=== PATIENT | female | born 1935 | race Caucasian/White ===

== ENCOUNTER 2019-09-20 07:20 | Inpatient (IN) ==
--- NOTE | 2019-08-09 16:29 | PAT Medication Instructions ---
Medication Instructions Date of Service August 09, 2019 Home Medications albuterol sulfate 2 inh INHALATION Q6H PRN ibuprofen [Advil] 200 mg PO Q6H PRN multivitamin 1 tab PO DAILY sertraline 50 mg PO DAILY tafluprost (PF) [Zioptan (PF)] 1 drp OPHTHALMIC (EYE) DAILY ASK your surgeon for instructions ibuprofen [Advil] 200 mg PO Q6H PRN DO NOT take the morning of surgery multivitamin 1 tab PO DAILY Take morning of surgery With a small sip of water, OTHERWISE NOTHING TO EAT OR DRINK AFTER MIDNIGHT: albuterol sulfate 2 inh INHALATION Q6H PRN (if needed, and bring with you to the hospital) sertraline 50 mg PO DAILY tafluprost (PF) [Zioptan (PF)] 1 drp OPHTHALMIC (EYE) DAILY Other Notes If you have any questions please call us at [phone] or [phone] or [phone] or [phone]
--- NOTE | 2019-08-12 12:44 | Anesthesiology Consultation ---
Date of Service August 12, 2019 Assessment & Plan (1) Encounter for pre-operative examination: Note to cardio re: need for echo due to abnormal EKG or vascular f/u prior to surgery. Chart Review Chart Review: Acceptable Risk for Surgery (pending echo/response from PCP) and Patient seen in Pre Admission Testing Teaching & Discussion Instructed NPO after midnight before surgery, except medications with 15 cc of water. Medication instructions provided according to the PAT guidelines. History Surgery Operation Date: 09/20/19 07:00 Proposed Procedures p Left Anterior Total Hip Arthroplasty - Nico Maldoando, Height/Weight Height: 5 ft 6 in Weight: 72.9 kg Allergies Allergy/AdvReac Type Severity Reaction Status Date / Time nickel Allergy Unknown JEWELRY - Verified 08/12/19 10:33 MAKES EARS ITCH MEFOXITIN Allergy Unknown RASH Uncoded 08/12/19 10:33 Medications Home Medications Medication Instructions Recorded Confirmed Last Taken albuterol sulfate 2 inh INHALATION Q6H PRN 08/05/19 08/12/19 Unknown ibuprofen [Advil] 200 mg PO Q6H PRN 08/05/19 08/12/19 Unknown multivitamin 1 tab PO DAILY 08/05/19 08/12/19 Unknown sertraline 50 mg PO DAILY 08/05/19 08/12/19 Unknown tafluprost (PF) [Zioptan (PF)] 1 drp OPHTHALMIC (EYE) DAILY 08/05/19 08/12/19 Unknown Past Medical History Medical History Anxiety Asthma PREVIOUSLY USING ALBUTEROL QID, MORE RECENTLY HAS ONLY NEEDED ONCE DAILY Depression Glaucoma Hiatal hernia History of renal stone Osteoarthritis Splenic artery aneurysm PCP MONITORING, PATIENT TO SEE VASCULAR Stress incontinence Exercise / Class Metabolic Activity III < 4 Walking/Shop/Light housework (Denies CP with 1 FOS, may have some mild SOB 2/2 asthma) Past Family History Family History Aunt Family history of diabetes mellitus Aunt Family history of diabetes mellitus Past Surgical History Surgical History Hx of cholecystectomy Hx of colonoscopy Hx of dilation and curettage Hx of lithotripsy Past Anesthesia History No Hx of Anesthesia Complications and No Family Hx of Anesthesia Complications History of PONV No Hx of PONV and No Hx of Motion Sickness Social History Smoking Status: Former smoker Do You Dip or Chew Tobacco: No Smoking End Date: 30-40 YR AGO Hx Alcohol Use: Yes alcohol intake frequency: holidays/special occasions only Hx Substance Use: No Review of Systems Pt denies any recent chest pain, shortness of breath, palpitations, cough, fever or URI. Physical Exam Vital Signs BP: 160/86 P: 80bpm SPO2: 98% RA T: 98.0 F R: 12 ENMT Mouth: + dental restorations (several crowns) and + small oral opening; no chipped teeth and no loose teeth Thyromental Distance: > or= 3.5 Finger Breadths (4) Mallampati Class: III Neck normal visual inspection and + limited neck extension Respiratory normal respiratory effort Auscultation: lungs clear to auscultation bilaterally Cardiovascular Rate/Rhythm: regular rate and regular rhythm Heart Sounds: no murmur Extremities: no edema Testing Laboratory Results 08/12/19 12:58 08/12/19 12:58 PT 10.1 Seconds (9.0-12.0) 08/12/19 12:58 INR 1.0 (0.9-1.1) 08/12/19 12:58 APTT 25.0 Seconds (21.0-31.0) 08/12/19 12:58 Blood Type B Positive 08/12/19 12:58 Antibody Screen NEGATIVE 08/12/19 12:58 Electrocardiogram Date: 08/12/19 Findings: + NSR @ (65) Left anterior fascicular block. Minimal voltage criteria for LVH, may be normal variant. Cannot rule out anterior infarct, age undetermined. Compared with EKG of 03/02/2013, questionable change in QRS duration and minimal criteria for anterior infarct are now present. Chest X-Ray Date: 08/12/19 IMPRESSION: 1. Large hiatal hernia. No active disease in the chest.
--- NOTE | 2019-08-12 13:35 | XRay Report ---
XR chest Pre-admission PA/Lat CLINICAL HISTORY: Preoperative chest COMPARISON STUDY: 03/02/2013 FINDINGS: There is a large hiatal hernia. The heart is normal in size. There is no failure. There is no focal pulmonary consolidation. There are no pleural effusions. There is an eggshell calcification within left upper quadrant, likely secondary to a splenic artery aneurysm. This is visualized in the prior study.[ IMPRESSION: 1. Large hiatal hernia. No active disease in the chest. ACT 112: Negative or not required by law. Electronically signed by: Stuart Mcbride M.D. 08/12/2019 1:34 PM
[2019-08-12 14:00] LABS: Basophils # (auto) 0.02 K/uL (0-0.2); Basophils % (auto) 0.2 %; Hematocrit (blood only) 46.9 % (37-47); Hemoglobin 15.3 g/dL (12.0-16.0); Immature Granulocytes # (auto) 0.04 K/uL (0.00-0.02); Immature Granulocytes % (auto) 0.4 %; Lymphocytes % (auto) 12.5 %; Mean Corpuscular Hemoglobin 27.8 pg (25-34); Mean Corpuscular Hgb Conc 32.6 g/dL (32-36); Mean Corpuscular Volume 85.3 fL (80-100); Mean Platelet Volume 11.4 fL (7.4-10.4); Monocytes # (auto) 0.62 K/uL (0.11-0.59); Monocytes % (auto) 6.5 %; Neutrophils # (auto) 7.63 K/uL (1.4-6.5); Neutrophils % (auto) 79.4 %; Platelet Count 169 K/uL (130-400); RDW Coefficient of Variation 14.1 % (11.5-14.5); RDW Standard Deviation 43.8 fL (36.4-46.3); White Blood Count 9.61 K/uL (4.8-10.8)
[2019-08-12 14:19] LABS: Partial Thromboplastin Ratio 0.9; Prothrombin Time 10.1 Seconds (9.0-12.0)
[2019-08-12 14:23] LABS: BUN Creatinine Ratio 20.8 (10-20); Calcium 9.6 mg/dl (8.5-10.1); Creatinine Clr Calc Pharmacy 44.5 ml/min; Est GFR (African American) 61.8; Est GFR (Non-African American) 53.3; Potassium 4.8 mmol/L (3.5-5.1)
--- NOTE | 2019-08-12 15:40 | Electrocardiogram Report ---
Test Reason : Blood Pressure : / mmHG Vent. Rate : 065 BPM Atrial Rate : 065 BPM P-R Int : 182 ms QRS Dur : 114 ms QT Int : 402 ms P-R-T Axes : 066 -61 061 degrees QTc Int : 418 ms Normal sinus rhythm Left anterior fascicular block Minimal voltage criteria for LVH, may be normal variant Cannot rule out Anterior infarct , age undetermined Abnormal ECG When compared with ECG of 02-MAR-2013 11:23, Questionable change in QRS duration Minimal criteria for Anterior infarct are now Present Confirmed by Javier Cunningham ([id number]) on 08/12/2019 3:40:08 PM Referred By: Nico Maldonado Confirmed By:Javier Cunningham
--- NOTE | 2019-09-19 15:51 | History & Physical Report ---
Date of Service September 19, 2019 Assessment & Plan (1) Osteoarthritis of left hip: We will proceed with a left anterior total of arthroplasty. Postoperatively she will be placed on aspirin for DVT prophylaxis. She will be kept overnight in the hospital for postoperative medical management. She plans to use home health upon discharge. Present on Admission?: Yes History of Present Illness Chief Complaint: Primary osteoarthritis of the left hip Primary Care Provider: Nancy Sandoval DO Alexandra is a pleasant 84-year-old female who is been dealing with chronic increasing left hip and groin pain. X-rays and clinical examination have been diagnostic for primary osteoarthritis of the left hip. After failing conservative treatment, she has elected to proceed with a left anterior total hip arthroplasty. Allergies Allergy/AdvReac Type Severity Reaction Status Date / Time nickel Allergy Unknown JEWELRY - Verified 08/12/19 10:33 MAKES EARS ITCH MEFOXITIN Allergy Unknown RASH Uncoded 08/12/19 10:33 Home Medications Home Medications Medication Instructions Recorded Confirmed Type albuterol sulfate 2 inh INHALATION Q6H PRN 08/05/19 08/12/19 History ibuprofen [Advil] 200 mg PO Q6H PRN 08/05/19 08/12/19 History multivitamin 1 tab PO DAILY 08/05/19 08/12/19 History sertraline 50 mg PO DAILY 08/05/19 08/12/19 History tafluprost (PF) [Zioptan (PF)] 1 drp OPHTHALMIC (EYE) DAILY 08/05/19 08/12/19 History Past Med/Surg History Medical History Anxiety Asthma PREVIOUSLY USING ALBUTEROL QID, MORE RECENTLY HAS ONLY NEEDED ONCE DAILY Depression Glaucoma Hiatal hernia History of renal stone Osteoarthritis Splenic artery aneurysm PCP MONITORING, PATIENT TO SEE VASCULAR Stress incontinence Surgical History Hx of cholecystectomy Hx of colonoscopy Hx of dilation and curettage Hx of lithotripsy Family History Aunt Family history of diabetes mellitus Aunt Family history of diabetes mellitus Social History Preferred Language: Greek Communication Ability: Effective Beliefs That Will Affect Care: None Current Living Situation: Alone Feels Safe at Home: Yes Smoking Status: Former smoker Second Hand Exposure: No ; Hx Alcohol Use: Yes Hx Substance Use: No Review of Systems All systems reviewed & are unremarkable except as noted in HPI & below Physical Exam Constitutional: WD/WN, vitals as above Eyes: PERRL, conjunctivae normal, anicteric sclerae ENMT: external ear and nose normal, oropharynx normal Neck: trachea midline, no thyromegaly Respiratory: normal respiratory effort Cardiovascular: RRR, no murmur, no edema Gastrointestinal (Abdomen): normal bowel sounds, soft, nontender, no hepatosplenomegaly Musculoskeletal: Physical examination of the left hip reveals decreased range of motion with flexion, internal and external rotation. There is significant groin pain with forced internal rotation of the hip his leg lengths are essentially equal. Psychiatric: A+Ox3, euthymic affect Results & Data Diagnostic Findings Radiographs of the left hip and pelvis demonstrate advanced osteoarthritis with joint space narrowing osteophyte formation and [id number] articulation.
[~2019-09-20 07:20] MED LIST: ACETAMINOPHEN 500 MG TAB PO SCH; BUPIVACAINE 0.5 % 5 MG/1 ML PF 10ML VIAL ONE; CEFAZOLIN 1000MG 1,000 MG/7.5 ML SYR IV SCH; FAMOTIDINE 20 MG TAB PO SCH; GABAPENTIN 300 MG CAP PO SCH; LR 500ML BOLUS, THEN 15ML/HR IV SCH; LR 60ML/HR IV SCH; ROPIVACAINE 0.5% HCL/PF 150 MG, BUPIVACAINE 0.5% MPF 30 ML, EPINEPHrine 30MG/30ML (OR U... INSTIL SCH; TRANEXAMIC ACID 1,000 MG **IV Intra-op IV SCH; TRANEXAMIC ACID 1,000 MG **IV Pre-op IV SCH; dexAMETHasone 4 MG TAB PO SCH
[2019-09-20] MEDS ORDERED: PROPOFOL IV EMULSION 10 MG/ML 20 ML VIAL IV ONE (08:04)
[2019-09-20] MEDS ORDERED: LIDOCAINE HCL 2% 2 ML VIAL/AMP(20MG/ML) INFIL ONE (08:04)
[2019-09-20] MEDS ORDERED: DEXAMETHASONE SOD INJ 4 MG/ML VIAL ONE (08:05)
[2019-09-20] MEDS ORDERED: MIDAZOLAM HCL 1 MG/ML 2ML VIAL ONE (08:05)
[2019-09-20] MEDS ORDERED: ONDANSETRON INJ 2 MG/ML 2 ML VIAL ONE (08:05)
[2019-09-20] MEDS ORDERED: fentaNYL citrate 100 MCG/2 ML VIAL ONE (08:05)
--- NOTE | 2019-09-20 08:28 | History & Physical Bridge Note ---
Date of Service September 20, 2019 History & Physical Bridge Note I have examined the patient, reviewed the History & Physical and in the interval since the performance of the History & Physical I have noted the following changes of clinical significance: no changes noted
[2019-09-20] MEDS ORDERED: ONDANSETRON INJ 2 MG/ML 2 ML VIAL IV PRN ×2 (08:54→12:15)
[2019-09-20] MEDS ORDERED: ePHEDrine sulfate 50 MG/ML AMP IV PRN (08:54)
[2019-09-20] MEDS ORDERED: ATROPINE SULFATE 0.1 MG/ML 10ML SYR IV PRN (08:54)
[2019-09-20] MEDS ORDERED: fentaNYL citrate 100 MCG/2 ML VIAL IV PRN (08:54)
[2019-09-20] MEDS ORDERED: ORTHO JOINT ANESTHETIC ONE (09:02)
[2019-09-20] MEDS ORDERED: PHENYLEPHRINE 100MCG/ML 5ML SYR ONE (09:59)
[2019-09-20] MEDS ORDERED: ePHEDrine sulfate 50 MG/ML SYR ONE (10:03)
--- NOTE | 2019-09-20 10:58 | Operative Report ---
PG Post Operative Report Pre & Post Diagnosis Operation Date: 09/20/19 10:10 Pre-Op Diagnosis: Left Hip Degenerative Joint Disease Post-Op Diagnosis: Left Hip Degenerative Joint Disease I identified the patient and participated in the time-out.: Yes Procedure Operation Date: 09/20/19 10:10 Actual Procedures p Left Anterior Total Hip Arthroplasty, Uncemented(Left) - Nico Maldonado DO Surgeon Nico Maldonado, Skip Tender Nico Arellano PAC Estimated Blood Loss 250 Findings Consistent with Post-Op Diagnosis Specimens Left femoral head Complications none Disposition Disposition: Recovery Room Indications Alexandra is a pleasant 84-year-old female who presented my office with complaints of chronic increasing left hip and groin pain. X-rays and clinical examination were diagnostic for primary osteoarthritis of the left hip. After failing conservative treatment, she elected to proceed with a left anterior total hip arthroplasty. Description of Procedure Implants used I used a Biomet Taperloc total hip arthroplasty system with a size 8 high offset Taperloc stem, a 48 mm G7 cup with two 25mm screws, an E1 polyethylene liner, a 32 mm ceramic head with a +0 neck. Alexandra arrived at the hospital for the above procedure. She was seen in the preoperative holding area and the operative extremity was identified and signed. She was given a spinal anesthetic, a preoperative antibiotic, and TXA. She was then taken back to the operating room and laid on the table in the supine position. She was given basic sedation. The operative leg was secured to a Puristst leg positioner. The hip was then prepped and draped in sterile fashion. A timeout was done and the patient and the operative extremity was properly identified. An anterior approach was used. Dissection was taken down through the fascia and the tensor muscle belly was retracted laterally and the rectus was retracted medially. The circumflex vessels were identified and ligated. The capsule was then incised and tagged for later repair. The femoral neck was then cut and the femoral head was removed. The acetabulum was exposed. Time was spent doing a complete circumferential labral release. Sequential reaming of the acetabulum up to a size 47 reamer was done. Final reamings were done under fluoroscopy to ensure appropriate version. A Biomet 48 mm G7 cup was then impacted into place. Two 25 mm screws was placed because of her weak bone quality. The E1 polyethylene liner was then snapped into place. Surrounding soft tissues were then injected with 100 cc of an orthopedic pain control cocktail. The proximal femur was then exposed. Sequential broaching up to a size 8 broach was done. Off that broach a size 32 head with a +0 neck was trialed. The hip was reduced and fluoroscopic images showed anatomic alignment of the implants in acceptable length. The broach was removed. The final size 8 high offset Taperloc stem was then impacted into place. A ceramic 32 mm head with a +0 neck was then impacted onto the stem and the hip was reduced. Final fluoroscopic images showed anatomic alignment of the hip. The capsule was then closed with #1 Vicryl suture. A dilute betadyne lavage was then done for 3 minutes. The joint was then irrigated with normal saline solution. The fascia was closed with #1 PDS suture. Skin was closed with 2-0 Vicryl, hailee, and a Mandi VAC dressing. She was then transferred to a hospital bed and taken to the post anesthesia care unit in stable condition. She tolerated the procedure well. I attest to the content of the Intraoperative Record and any orders documented therein. Any exceptions are noted below.
--- NOTE | 2019-09-20 11:32 | Fluoroscopy Report ---
FL hip LT 1V HISTORY: 84 years-old Female LEFT ANTERIOR RADHA chronic left hip pain COMPARISON: Left hip radiographs 08/12/2019 TECHNIQUE: 2 views of the left hip FINDINGS: Satisfactory alignment of the left hip total joint arthroplasty without acute fracture or retained fo reign body. Expected postoperative soft tissue swelling with deep tissue air. IMPRESSION: Satisfactory alignment of the left hip total joint arthroplasty. ACT 112: Negative or not required by law. The above report was generated using voice recognition software. It may contain grammatical, syntax o r spelling errors. Electronically signed by: Juan Macedo M.D. 09/20/2019 11:31 AM
--- NOTE | 2019-09-20 12:01 | XRay Report ---
XR hip 1V LT w pelvis HISTORY: 84 years-old Female IN PACU - A/P PELVIS and LATERAL HIP left hip total joint arthroplasty COMPARISON: Fluoroscopic images of the left hip of same day TECHNIQUE: AP view of the pelvis with crosstable lateral view of the left hip FINDINGS: Moderate right hip osteoarthritis. Demineralized appearance of the bones. Left hip total joint arthro plasty demonstrates satisfactory alignment without acute fracture or retained foreign body. Lateral l eft-sided skin hailee with expected postsurgical soft tissue swelling and surgical drain. IMPRESSION: Left hip total joint arthroplasty with expected postoperative findings. ACT 112: Negative or not required by law. The above report was generated using voice recognition software. It may contain grammatical, syntax o r spelling errors. Electronically signed by: Juan Macedo M.D. 09/20/2019 12:00 PM
--- NOTE | 2019-09-20 12:02 | Anesthesiology Progress Note ---
Date of Service September 20, 2019 Anesthesia Post Procedure Vital Signs Vital Signs: Temp Pulse Pulse Resp BP Pulse Ox 09/20/19 12:00 67 19 120/65 98 09/20/19 11:45 36.3 C L 85 15 113/73 99 09/20/19 11:35 92 H 13 117/70 96 09/20/19 11:26 36.2 C L 85 18 121/69 99 09/20/19 07:54 36.6 C 86 18 162/82 H 96 Pain Intensity Left Hip: Pain Intensity: 4 Transfer of Care Handoff Completed per policy Notes Mental Status: alert / awake / arousable Patient Amnestic to Procedure: Yes Nausea / Vomiting: adequately controlled Pain: adequately controlled Airway Patency, RR, SpO2: stable & adequate BP & HR: stable & adequate Hydration State: stable & adequate Neuraxial Anesthesia: was administered and sensory block is resolving Anesthetic Complications: no major complications apparent
[2019-09-20] MEDS ORDERED: METOCLOPRAMIDE HCL INJ 5 MG/ML 2 ML VIAL IV PRN (12:15)
[2019-09-20] MEDS ORDERED: bisacodyL 10 MG SUPP PR PRN (12:15)
[2019-09-20] MEDS ORDERED: HYDROmorphone INJ 0.5 MG/0.5 ML SYR IV PRN (12:15)
[2019-09-20] MEDS ORDERED: TRAMADOL HCL 50 MG TABLET PO PRN (12:15)
[2019-09-20] MEDS ORDERED: NALOXONE HCL 0.4 MG/1 ML VIAL/CARP IV PRN (12:15)
[2019-09-20] MEDS ORDERED: MAGNESIUM HYDROXIDE SUSP 30 ML UDC PO PRN (12:15)
[2019-09-20] MEDS ORDERED: ALBUTEROL HFA 8 GM INHALER INH PRN (12:23)
[2019-09-20] MEDS: SODIUM CHLORIDE 0.9% 1000ML 1,000 ML IV SCH ×2 (13:29→23:25)
[2019-09-20] MEDS: ACETAMINOPHEN 500 MG TAB PO SCH ×2 (13:30→21:34)
[2019-09-20] MEDS: KETOROLAC TROMETHAMINE 15 MG/ML VIAL IV SCH ×3 (13:30→23:56)
[2019-09-20] MEDS: CEFAZOLIN 2000MG 2,000 MG/15 ML SYR IV SCH (18:02)
[2019-09-20] MEDS: DOCUSATE SODIUM 100 MG CAP PO SCH (21:33)
[2019-09-20] MEDS: ASPIRIN 81 MG ECTAB PO SCH (21:33)
[2019-09-20] MEDS: SENNA 8.6 MG TAB PO SCH (21:34)
[2019-09-21] MEDS: CEFAZOLIN 2000MG 2,000 MG/15 ML SYR IV SCH (02:05)
[2019-09-21] MEDS: ACETAMINOPHEN 500 MG TAB PO SCH ×3 (06:00→21:19)
[2019-09-21] MEDS: KETOROLAC TROMETHAMINE 15 MG/ML VIAL IV SCH ×4 (06:01→23:49)
[2019-09-21 06:54] LABS: Hematocrit (blood only) 35.4 % (37-47); Hemoglobin 11.7 g/dL (12.0-16.0); Immature Granulocytes # (auto) 0.04 K/uL (0.00-0.02); Immature Granulocytes % (auto) 0.3 %; Lymphocytes # (auto) 0.72 K/uL (1.2-3.4); Lymphocytes % (auto) 5.2 %; Mean Corpuscular Hemoglobin 27.7 pg (25-34); Mean Corpuscular Hgb Conc 33.1 g/dL (32-36); Mean Corpuscular Volume 83.9 fL (80-100); Mean Platelet Volume 10.4 fL (7.4-10.4); Monocytes # (auto) 1.04 K/uL (0.11-0.59); Monocytes % (auto) 7.5 %; Neutrophils # (auto) 12.03 K/uL (1.4-6.5); Platelet Count 145 K/uL (130-400); RDW Coefficient of Variation 13.8 % (11.5-14.5); RDW Standard Deviation 42.3 fL (36.4-46.3); Red Blood Count 4.22 M/uL (4.2-5.4); White Blood Count 13.83 K/uL (4.8-10.8)
[2019-09-21 07:26] LABS: BUN Creatinine Ratio 17.9 (10-20); Calcium 8.1 mg/dl (8.5-10.1); Creatinine Clr Calc Pharmacy 48.3 ml/min; Est GFR (African American) 68.5; Est GFR (Non-African American) 59.1; Potassium 4.3 mmol/L (3.5-5.1)
[2019-09-21] MEDS ORDERED: dexAMETHasone 4 MG TAB PO SCH (08:00)
[2019-09-21] MEDS: DOCUSATE SODIUM 100 MG CAP PO SCH ×2 (08:13→21:20)
[2019-09-21] MEDS: SERTRALINE HCL 50 MG TABLET PO SCH (08:14)
--- NOTE | 2019-09-21 08:48 | Orthopedic Progress Note ---
Date of Service September 21, 2019 Assessment & Plan (1) History of left hip replacement: Overall she is doing very well. She is not having much pain in the left hip. She will be seen by physical therapy today for ambulation and range of motion exercises. She is on aspirin for DVT prophylaxis. We will plan to discharge her to home tomorrow. Present on Admission?: Yes Subjective Alexandra was seen and examined at bedside this morning. Overall she is doing very well. She is not having much pain in the left hip. She has been up and ambulating to the bathroom. She has no complaints. Physical Exam Musculoskeletal: On physical examination of the left hip, the Mandi VAC dressings to suction. Her leg lengths are equal. She has active dorsiflexion and plantarflexion of the left ankle. Sensation is intact throughout. Results & Data ([facility]) Vital Signs (Past 12 Hours) Vital Signs Temp Pulse Pulse Resp BP BP Pulse Ox 09/21/19 07:30 36.6 C 72 16 131/74 94 09/21/19 02:17 36.7 C 72 16 126/70 95 09/20/19 23:11 36.6 C 82 16 118/72 94 09/20/19 21:44 36.8 C 81 18 105/61 93 Laboratory Results H & H 08/12/19 09/21/19 Range/Units 12:58 06:27 Hgb 15.3 11.7 L (12.0-16.0) g/dL Hct 46.9 35.4 L (37-47) % Coagulation 08/12/19 Range/Units 12:58 INR 1.0 (0.9-1.1) Diagnostic Findings Postoperative x-rays of the left hip show the prosthesis to be in anatomic alignment without any evidence of fracture, dislocation, or loosening. PG Care Time/CCT Total # of Minutes Spent Total Time Spent with Patient: Total time spent is greater than 50% in coordination of care (as documented) at patient's floor/unit and/or counseling patient: Coding Level of Care Code None Diagnoses History of left hip replacement Z96.642
[2019-09-21] MEDS: MULTIVITAMIN TAB PO SCH (08:51)
[2019-09-21] MEDS: ASPIRIN 81 MG ECTAB PO SCH ×2 (08:51→21:20)
[2019-09-21] MEDS: SENNA 8.6 MG TAB PO SCH (21:20)
[2019-09-22] MEDS: ACETAMINOPHEN 500 MG TAB PO SCH (05:45)
[2019-09-22] MEDS: KETOROLAC TROMETHAMINE 15 MG/ML VIAL IV SCH (05:45)
[2019-09-22] MEDS: SERTRALINE HCL 50 MG TABLET PO SCH (07:20)
[2019-09-22] MEDS: MULTIVITAMIN TAB PO SCH (07:20)
[2019-09-22] MEDS: DOCUSATE SODIUM 100 MG CAP PO SCH (07:20)
[2019-09-22] MEDS: ASPIRIN 81 MG ECTAB PO SCH (07:20)
--- NOTE | 2019-09-22 08:04 | Orthopedic Progress Note ---
Date of Service September 22, 2019 Assessment & Plan (1) History of left hip replacement: Overall she is doing very well. She is not having much pain in the left hip. She will be seen by physical therapy again today for ambulation and range of motion exercises. She is on aspirin for DVT prophylaxis. She can be discharged to home later today. She will follow-up with orthopedics in 2 weeks. Present on Admission?: Yes Subjective Alexandra was seen and examined at bedside this morning. Overall she is doing very well. She is not having any pain in the hip. She has been up and ambulating to the bathroom easily. She has no complaints. Physical Exam Musculoskeletal: On physical examination of the left hip, the Mandi VAC kristi ssing is to suction. Her leg lengths are equal. She has active dorsiflexion and plantarflexion of the left ankle. Results & Data ([facility]) Vital Signs (Past 12 Hours) Vital Signs Temp Pulse Resp BP BP Pulse Ox 09/22/19 06:32 36.6 C 68 18 147/78 H 92 09/21/19 23:45 145/79 H 09/21/19 23:44 36.6 C 67 16 163/82 H 94 PG Care Time/CCT Total # of Minutes Spent Total Time Spent with Patient: Total time spent is greater than 50% in coordination of care (as documented) at patient's floor/unit and/or counseling patient: Coding Level of Care Code None Diagnoses History of left hip replacement Z96.642
--- NOTE | 2019-09-22 08:06 | Discharge Summary ---
Date of Service September 22, 2019 Admission HPI Per Admitting Provider Alexandra is a pleasant 84-year-old female who is been dealing with chronic increasing left hip and groin pain. X-rays and clinical examination have been diagnostic for primary osteoarthritis of the left hip. After failing conservative treatment, she has elected to proceed with a left anterior total hip arthroplasty. Principal Diagnosis Left total hip arthroplasty Discharge Data Allergies Allergy/AdvReac Type Severity Reaction Status Date / Time nickel Allergy Unknown JEWELRY - Verified 09/20/19 07:52 MAKES EARS ITCH cefoxitin [From Mefoxin] Allergy Rash Verified 09/20/19 08:18 Consultations 09/21/19 08:00 Consult Case Management - Discharge Planning Routine Procedures Performed Operation Date: 09/20/19 10:10 Actual Procedures p Left Anterior Total Hip Arthroplasty, Uncemented(Left) - Nico Maldonado DO Ordered Studies 09/20/19 10:10 FL fluoroscopy <1hr Routine FL hip LT 1V Routine Hospital Course (1) History of left hip replacement: On September 20, 2019 Alexandra arrived at [facility] and underwent a left anterior total hip arthroplasty without complication. She had a spinal anesthetic. Postoperatively she was transferred to the general orthopedic floors. She was started on aspirin for DVT prophylaxis. Her hospital course was uneventful. On postop day #1 her H&H was stable and her pain was well controlled. She was able to participate well with physical therapy doing ambulation and range of motion exercises. On postop day #2 she continued to do well. She was seen once again by physical therapy. She was then discharged home. She will follow-up with orthopedics in 2 weeks. Total Time Total Time Spent Total Time Spent (In Minutes): 20 Discharge Plan Discharge Items Patient Disposition: Home - Home Health Services Reason For Visit: Left Hip Degenerative Joint Disease Discharge Diagnosis: Left total hip arthroplasty Activity: As commented below Non-emergency contact: Surgeon Call non-emergency contact if: your wound has increased redness and your wound has increased drainage Follow-up/Referrals: Nancy Sandoval DO [Primary Care Provider] - Diet: Regular Addtl Attending Provider Instructions: Activity and Therapy Recommendations: * If you are using [facility] then therapy will be provided at your home until they feel you have accomplished all of your goals. * If you are using [facility] then Physical Therapy will be provided until they feel you are ready to start Outpatient Physical Therapy. * If you are not using home therapy then Outpatient Physical Therapy should start about 3-5 days from your day of surgery. Therapy will last about 6-10 weeks * You were shown a series of exercises in the hospital. Do these exercises three times each day including the exercises you were shown in physical therapy. * Get up and walk several times each day.~ For the first four weeks, try not to stand or walk for more than one hour at a time. If you do stand or walk for more than one hour, you will not hurt anything, but your leg will likely swell.~~ * As you feel comfortable, you may change from the walker or crutches to a cane and~then to independent walking. Medications: * Narcotic You will likely be sent home from the hospital with a prescription for the narcotic pain medication that worked best throughout your stay. * Aspirin Most patients will be required to take Aspirin 81mg twice a day for 6 weeks after surgery. This is obtained [id number] and a prescription is not necessary. * Other medications may be prescribed for specific circumstances. If you have any questions, please call the office at . * Resume previous home medications unless otherwise instructed TEDs/Elastic Stockings: The white elastic stockings help limit swelling and prevent blood clots from forming in your legs. The more you wear them, the more they work. Wear them for six weeks. Dressing Care: You will likely have a purple VAC dressing after surgery. This dressing will keep the incision dry and promote early healing. After about 7 days the batteries will wear out and the VAC will lose suction. Simply remove the dressing at that time and throw everything away, including the small suction machine. Then, you may leave the hailee open to air or cover them with a dry dressing so they do not rub on your pants. The hailee will be removed at your 2 week follow-up appointment. Showering: You may shower immediately with the purple VAC dressing. Let the shower spray hit your opposite side and slowly pat the plastic dry. Do not soak the dressing. After the dressing is removed you may shower normally with the hailee exposed. Let soapy water run over the hailee and pat them dry. Things To Watch For: * Drainage from the incision site that occurs more than one week after your surgery. * Increased redness at the incision site. * Fever above 102 degrees Fahrenheit. * Unusual chest pain or shortness of breath. * Call [facility] at with any of the above problems Follow-Up Visit: Follow-up with Dr. Maldonado 2-3 weeks after your day of surgery. An appointment was probably scheduled when you signed-up for surgery in the office. If you have any questions call Office Instructions: More detailed instructions as well as Frequently Asked Questions were provided in a folder by our office when you signed-up for surgery. Please review these instructions when you get home. If you have any further questions or concerns, please feel free to call the office at [phone] Pending Studies at Discharge: No Stand-Alone Forms: My [facility] R17, Smoking Cessation Medications and DC Order Prescriptions: New tramadol 50 mg Tablet 50 mg PO Q4H PRN (Reason: pain) Qty: 30 RF: 0 aspirin [Ecotrin Low Strength] 81 mg Tablet,Delayed Release (Dr/Ec) 81 mg PO BID 42 Days Qty: 0 RF: 0 Continued ibuprofen [Advil] 200 mg Tablet 200 mg PO Q6H PRN (Reason: Pain) RF: 0 sertraline [Zoloft] 50 mg Tablet 50 mg PO DAILY RF: 0 albuterol sulfate 90 mcg/actuation Aero Powdr Breath Act W/Sensor 2 inh INHALATION Q6H PRN (Reason: SHORRTNESS OF BREATH) RF: 0 multivitamin Tablet,Chewable 1 tab PO DAILY RF: 0 Zioptan (PF) 0.0015 % Dropperette 1 drp OPHTHALMIC (EYE) DAILY RF: 0 Discharge Orders: Discharge Order (Routine); Ordered 09/22/19 Ordered By: Nico Maldonado Admission Data Admit Date/Time: 09/20/19 11:30 Attending Provider: Nico Maldonado Admit Provider: Nico Maldonado Primary Care Provider: Nancy Sandoval Other Providers: [facility] Coding Level of Care Code D/C Day Management <30 mins Diagnoses History of left hip replacement Z96.642
== END 2019-09-22 10:52 | disposition home health service (06) | DRG 470 ==
LOC: ASU 07:20 → 3E 11:30

== ENCOUNTER 2022-01-21 06:26 | Observation (INO) ==
--- NOTE | 2021-12-20 14:20 | PAT Medication Instructions ---
Medication Instructions Date of Service December 20, 2021 Home Medications Medication Instructions Recorded amoxicillin 500 mg tablet 2,000 mg PO ONCE PRN #4 tab 01/15/20 albuterol sulfate 90 mcg/actuation breath activated powder inhaler,sensor 2 inh INHALATION Q6H PRN ibuprofen 200 mg tablet (Advil) 200 mg PO Q6H PRN sertraline 50 mg tablet (Zoloft) 50 mg PO DAILY amoxicillin 500 mg tablet 2,000 mg PO ONCE PRN Continue as directed amoxicillin 500 mg tablet 2,000 mg PO ONCE PRN (if needed) ASK your surgeon for instructions ibuprofen 200 mg tablet (Advil) 200 mg PO Q6H PRN Take morning of surgery With a small sip of water, OTHERWISE NOTHING TO EAT OR DRINK AFTER MIDNIGHT: albuterol sulfate 90 mcg/actuation breath activated powder inhaler,sensor 2 inh INHALATION Q6H PRN (use if needed; please bring rescue inhaler with you to hospital day of surgery if possible) sertraline 50 mg tablet (Zoloft) 50 mg PO DAILY Other Notes If you have any questions please call us at [phone] or [phone] or [phone] or [phone]
--- NOTE | 2021-12-22 11:24 | Anesthesiology Consultation ---
Date of Service December 22, 2021 Assessment & Plan (1) Encounter for pre-operative examination: Chart Review Chart Review: Acceptable Risk for Surgery (pending preop Covid testing results ) and Patient seen in Pre Admission Testing Per PAT appt on 12/22/21, patient denies any recent travel or large group activities. No known Covid positive exposures or Covid related symptoms. No known Covid infection in the past 90 days. Pt is NOT vaccinated for Covid. Preop Covid testing scheduled 01/19/22= will await results. Educated on importance of self quarantining, social distancing and wearing mask in public for the patient one week prior to surgery and after Covid testing done Pt seen by PCP 11/09/21= patient seen for preop evaluation. Hx of borderline HTN and splenic artery aneurysm. History of abnormal EKG. Per cardiologyEKG has not changed from previous and she is asymptomatic from cardiac standpointno further cardiac testing or intervention is necessary at this time. She was counseled that once again, I would place her as a low risk for any adverse perioperative cardiovascular event with the risk being approximately less than 1%. She was further counseled that no further cardiac testing or intervention would further lower her risk. She states she understands, she is accepting of that risk and wishes to proceed with surgery. So I see no need to delay from a cardiac standpoint. Teaching & Discussion Pre-Anesthesia Teaching/Discussion Notes: Instructed NPO after midnight before surgery,except medications with 15 cc of water. Medication instructions provided according to the PAT guidelines. History Surgery Operation Date: 01/21/22 09:20 Proposed Procedures p Right Total Knee Arthroplasty - Nico Maldonado DO Height/Weight Height: 5 ft 6 in Weight: 73.2 kg Allergies Allergy/AdvReac Type Severity Reaction Status Date / Time cefoxitin [From Mefoxin] Allergy Mild Rash Verified 12/17/21 14:33 nickel Allergy Mild JEWELRY - Verified 12/17/21 14:33 MAKES EARS ITCH Medications Home Medications Medication Instructions Recorded Confirmed Last Taken albuterol sulfate 90 mcg/actuation 2 inh INHALATION Q6H PRN 08/05/19 12/17/21 Unknown breath activated powder inhaler,sensor ibuprofen 200 mg tablet (Advil) 200 mg PO Q6H PRN 08/05/19 12/17/21 Unknown sertraline 50 mg tablet (Zoloft) 50 mg PO DAILY 08/05/19 12/17/21 09/19/19 20:00 amoxicillin 500 mg tablet 2,000 mg PO ONCE PRN #4 tab 01/15/20 12/17/21 Unknown Past Medical History Medical History (Updated 12/22/21 @ 11:53 by Anel Mckeon PA-C) Borderline hypertension BP can fluctuate but mostly controlled per patient COPD with asthma SEASONAL/EXERCISE ASTHMA LAST USED RESCUE INHALER YESTERDAY Breathing stable per patient Depression Glaucoma NO EYE DROPS Follows routinely with eye doctor Hiatal hernia History of kidney stones No recent issues Peripheral neuropathy Bilateral feet Splenic artery aneurysm QUESTIONABLE- PCP MONITORING Did see vascular in the past - did not feel area was aneurysmal per patient (last imaging 2018) Stress incontinence Exercise / Class Metabolic Activity III < 4 Walking/Shop/Light housework (one flight of stairs - mild SOB, no chest pain ) Past Family History Family History Aunt Family history of diabetes mellitus Aunt Family history of diabetes mellitus Other No family history of adverse response to anesthesia Past Surgical History Surgical History History of cataract surgery RT/LEFT History of left hip replacement (~09/2019) History of tonsillectomy and adenoidectomy History of tooth extraction Hx of cholecystectomy Hx of colonoscopy Hx of dilation and curettage Hx of lithotripsy Past Anesthesia History No Hx of Anesthesia Complications and No Family Hx of Anesthesia Complications History of PONV No Hx of PONV and No Hx of Motion Sickness Social History Smoking Status: Former smoker (Social (1 pack/week)) tobacco type: cigarettes Do You Dip or Chew Tobacco: No Smoking End Date: S FOR SHORT TIME Hx Alcohol Use: Yes alcohol intake frequency: holidays/special occasions only Hx Substance Use: No Review of Systems Mild wheezing and cough in the morning- chronic and stable (gets post nasal drip) Unknown with snoring ( sleeps alone) Hx of blood transfusion (specifics unknown- but not recently) Patient denies chest pain, shortness of breath at rest, reflux, palpitations. No hx of seizures, stroke, NE. No hx of blood clots. Physical Exam Vital Signs VITALS BP 144/88 P 84 TEMP 98.1 SP02 96% RESP 16 Constitutional no acute distress ENMT Mouth: + small oral opening (significant ); no TMJ clicking Thyromental Distance: > or= 3.5 Finger Breadths (3.5) Mallampati Class: III Removable bridge on bottom right side Neck + limited neck extension (significant ) Respiratory normal respiratory effort; no respiratory distress Auscultation: lungs clear to auscultation bilaterally; no wheezes Cardiovascular Rate/Rhythm: regular rate and regular rhythm Heart Sounds: no murmur Vessels: no carotid bruit Musculoskeletal Spine: no pain with cervical ROM Extremities: extremities normal to inspection Psychiatric Orientation: alert Lab Results Anesthesia Preop Results Results Anesthesia Widget: WBC 9.68 K/uL (4.8-10.8) 12/22/21 Hgb 15.2 g/dL (12.0-16.0) 12/22/21 Hct 46.3 % (37-47) 12/22/21 Plt 186 K/uL (130-400) 12/22/21 Na 140 mmol/L (136-145) 12/22/21 K 4.2 mmol/L (3.5-5.1) 12/22/21 Cl 107 mmol/L (98-107) 12/22/21 CO2 27 mmol/L (21-32) 12/22/21 BUN 21 mg/dl (6-23) 12/22/21 Creat 0.89 mg/dl (0.6-1.2) 12/22/21 Glucose Level 104 mg/dl (70-99(Fasting)) H 12/22/21 PT 10.3 Seconds (9.0-12.0) 12/22/21 PTT 25.3 Seconds (21.0-31.0) 12/22/21 INR 1.0 (0.9-1.1) 12/22/21 Blood Type B Positive 12/22/21 Antibody Screen NEGATIVE 12/22/21 Testing Electrocardiogram Date: 11/09/21 Findings: + NSR @ (77bpm ) Left anterior fascicular block LVH, with secondary QRS widening and repolarization abnormality Cannot rule out septal infarct, age undetermined Possible lateral infarct (cited on or before April 26, 2019) When compared to EKG from September 17, 2019PACs are no longer present, minimal criteria for septal infarct are now present per cardiology. Chest X-Ray Date: 12/22/21 FINDINGS: Large hiatal hernia. The cardiac silhouette is mildly enlarged. Chronic pleural parenchymal scarring of the lung apices. No pneumothorax, pleural effusion, airspace consolidation or overt pulmonary edema. Degenerative changes of the shoulders and spine. 1.9 cm peripherally calcified structure projects over the upper abdomen, likely a calcified splenic artery aneurysm. Surgical clips are also again noted projecting over the upper abdomen. IMPRESSION: 1. No acute process. 2. Large hiatal hernia. Echocardiogram Date: 09/09/19 EF: 55-59% LV Function: normal Other Findings: + LVH (borderline/concentric ) and + diastolic dysfunction (Grade I ) Mild aortic valve sclerosis. Mild AR. Mild TR. Other Testing Mesenteric Arterial Duplex 05/08/19= Patent celiac artery, hepatic, superior mesenteric artery and inferior mesenteric artery. No evidence of a splenic artery aneurysm was identified at the proximal/mid segment (midline). Difficult visualization of the distal splenic artery at the spleen ( left upper abdomen) but with no obvious aneurysm identified by ultrasound. Alternative imaging is suggested to further evaluate concern for aneurysm.
--- NOTE | 2022-01-20 12:08 | History & Physical Report ---
Date of Service January 20, 2022 Assessment & Plan (1) Osteoarthritis of right knee: We will proceed with a right total knee arthroplasty. Postoperatively she will be started on aspirin for DVT prophylaxis and kept overnight in the hospital for postoperative medical management. She plans to have the hospital set up home health upon discharge. History of Present Illness Chief Complaint: Osteoarthritis of the right knee. Primary Care Provider: Nancy Sandoval DO Alexandra is a pleasant 86-year-old female who is been doing chronic increasing right knee pain. X-rays and clinical examination have been diagnostic for advanced arthritis of the right knee. After failing conservative treatment, she has elected to proceed with a left total knee arthroplasty. Allergies Allergy/AdvReac Type Severity Reaction Status Date / Time cefoxitin [From Mefoxin] Allergy Mild Rash Verified 12/17/21 14:33 nickel Allergy Mild JEWELRY - Verified 12/17/21 14:33 MAKES EARS ITCH Home Medications Medication Instructions Recorded Confirmed Type albuterol sulfate 90 mcg/actuation 2 inh INHALATION Q6H PRN 08/05/19 12/17/21 History breath activated powder inhaler,sensor ibuprofen 200 mg tablet (Advil) 200 mg PO Q6H PRN 08/05/19 12/17/21 History sertraline 50 mg tablet (Zoloft) 50 mg PO DAILY 08/05/19 12/17/21 History amoxicillin 500 mg tablet 2,000 mg PO ONCE PRN #4 tab 01/15/20 12/17/21 Rx Past Med/Surg History Medical History Borderline hypertension BP can fluctuate but mostly controlled per patient COPD with asthma SEASONAL/EXERCISE ASTHMA LAST USED RESCUE INHALER YESTERDAY Breathing stable per patient Depression Glaucoma NO EYE DROPS Follows routinely with eye doctor Hiatal hernia History of kidney stones No recent issues Peripheral neuropathy Bilateral feet Splenic artery aneurysm QUESTIONABLE- PCP MONITORING Did see vascular in the past - did not feel area was aneurysmal per patient (last imaging 2018) Stress incontinence Surgical History History of cataract surgery RT/LEFT History of left hip replacement (~09/2019) History of tonsillectomy and adenoidectomy History of tooth extraction Hx of cholecystectomy Hx of colonoscopy Hx of dilation and curettage Hx of lithotripsy Family History Aunt Family history of diabetes mellitus Aunt Family history of diabetes mellitus Other No family history of adverse response to anesthesia Social History Smoking Status: Former smoker (Social (1 pack/week)) Second Hand Exposure: No; Hx Alcohol Use: Yes Hx Substance Use: No Preferred Language: Tajik Communication Ability: Effective Bogger Operator Required: No Beliefs That Will Affect Care: None Current Living Situation: Family Current Living Situation Comment: LIVES WITH DAUGHTER Feels Safe at Home: Yes Assistive Devices: Cane and Glasses Review of Systems All systems reviewed & are unremarkable except as noted in HPI & below. Physical Exam On physical examination of the right knee, she has a slight valgus deformity. She has range of motion of 0 to 120 degrees. She has no instability. She has pain over the distal lateral femoral condyle and over the lateral joint line.. Constitutional WD/WN, vitals as above Eyes PERRL, conjunctivae normal, anicteric sclerae ENMT external ear and nose normal, oropharynx normal Neck trachea midline, no thyromegaly Respiratory normal respiratory effort Cardiovascular RRR, no murmur, no edema Gastrointestinal (Abdomen) normal bowel sounds, soft, nontender, no hepatosplenomegaly Psychiatric A+Ox3, euthymic affect Results & Data Results & Data Laboratory Results . Diagnostic Findings X-rays of the right knee show advanced osteoarthritis with joint space narrowing, osteophyte formation, and [id number] articulation. PG Care Time/CCT Total # of Minutes Spent Total Time Spent with Patient: Total time spent is greater than 50% in coordination of care (as documented) at patient's floor/unit and/or counseling patient: Coding Level of Care Code None Diagnoses Osteoarthritis of right knee M17.11
[~2022-01-21 06:26] MED LIST changes: -BUPIVACAINE 0.5 % 5 MG/1 ML PF 10ML VIAL ONE; -CEFAZOLIN 1000MG 1,000 MG/7.5 ML SYR IV SCH; +Ketorolac (*for OR use only*) 30 MG, dexAMETHasone 4 MG, KETAMINE HCL (**OR use only) 1... INFIL SCH; -ROPIVACAINE 0.5% HCL/PF 150 MG, BUPIVACAINE 0.5% MPF 30 ML, EPINEPHrine 30MG/30ML (OR U... INSTIL SCH; +ceFAZolin 1000MG 1,000 MG/7.5 ML SYR IV SCH
--- NOTE | 2022-01-21 06:42 | History & Physical Bridge Note ---
Date of Service January 21, 2022 History & Physical Bridge Note I have examined the patient, reviewed the History & Physical and in the interval since the performance of the History & Physical I have noted the following changes of clinical significance: no changes noted
[2022-01-21] MEDS ORDERED: PROPOFOL IV EMULSION 10 MG/ML 20 ML VIAL IV ONE (06:54)
[2022-01-21] MEDS ORDERED: MIDAZOLAM HCL 1 MG/ML 2ML VIAL ONE (06:55)
[2022-01-21] MEDS ORDERED: ORTHO JOINT ANESTHETIC ONE (07:14)
[2022-01-21] MEDS ORDERED: BUPIVACAINE 0.5 % 5 MG/1 ML PF 10ML VIAL ONE ×2 (07:15→07:21)
[2022-01-21] MEDS ORDERED: ROPIVACAINE 0.5% 5 MG/ML 30 ML VIAL ONE (07:15)
[2022-01-21] MEDS ORDERED: fentaNYL citrate 100 MCG/2 ML VIAL ONE (08:04)
[2022-01-21] MEDS ORDERED: KETAMINE 50 MG/5 ML SYRINGE ONE (08:04)
[2022-01-21] MEDS ORDERED: ePHEDrine sulfate 50 MG/ML AMP ONE (08:09)
[2022-01-21] MEDS ORDERED: ATROPINE SULFATE 0.1 MG/ML 10ML SYR IV PRN (08:13)
[2022-01-21] MEDS ORDERED: ePHEDrine sulfate 50 MG/ML AMP IV PRN (08:13)
[2022-01-21] MEDS ORDERED: fentaNYL citrate 100 MCG/2 ML VIAL IV PRN (08:13)
[2022-01-21] MEDS ORDERED: ONDANSETRON INJ 2 MG/ML 2 ML VIAL IV PRN ×2 (08:13→11:09)
[2022-01-21] MEDS ORDERED: HYDROmorphone INJ 2 MG/ML SYR/VIAL IV PRN (08:13)
[2022-01-21] MEDS ORDERED: DEXAMETHASONE SOD INJ 4 MG/ML VIAL ONE (08:16)
[2022-01-21] MEDS ORDERED: ONDANSETRON INJ 2 MG/ML 2 ML VIAL ONE (08:16)
--- NOTE | 2022-01-21 09:00 | Operative Report ---
PG Post Operative Report Pre & Post Diagnosis Operation Date: 01/21/22 08:10 Pre-Op Diagnosis: DJD Knee Right Post-Op Diagnosis: DJD Knee Right I identified the patient and participated in the time-out.: Yes Procedure Operation Date: 01/21/22 08:10 Actual Procedures p Right Total Knee Arthroplasty(Right) - Nico Maldonado DO Surgeon Nico Maldonado, Drop Wire Aliner Nico Aerllano PAC Estimated Blood Loss 10 Findings Consistent with Post-Op Diagnosis Specimens Right femoral and tibial bone Complications none Disposition Disposition: Recovery Room Indications Alexandra is a pleasant 86-year-old female who is been doing chronic increasing right knee pain. X-rays clinical examination were diagnostic for advanced arthritis of the right knee. After failing conservative treatment, she elected to proceed with a right total knee arthroplasty. Description of Procedure Implants used: I used a Rian Persona total knee arthroplasty system with a size 6 standard femur, E tibia, 31 oval patella, and a size 12 medial congruent polyethylene bearing. All components were cemented in place with Biomet cement. Alexandra arrived [facility] for the above procedure. She was seen in the preoperative holding area and the operative extremity was identified and signed. She was given a preoperative antibiotic, TXA, a spinal anesthetic and an adductor nerve block. She was taken back to the operating room and laid on the table in supine position. She was given basic sedation. The operative knee was then prepped and draped in sterile fashion. A timeout was done, and the patient and the operative extremity was properly identified. A midline incision was made directly over the patella. Dissection was taken down to the extensor mechanism. A subvastus arthrotomy was used. The medial re tinaculum was released and the fat pad was mostly excised. The knee was flexed and the ACL, PCL, and meniscus were removed. A drill was sent down the center of the femoral canal followed by an intr amedullary lesvia. Off that lesvia a distal femoral cutting block was placed. 9 mm was resected off the distal femur at 5 of valgus. A posterior referencing AP sizing guide was then placed on the distal femur. The femur measured to be a size 6. 2 drill holes were placed in 3 of external rotation. A 4-in-1 cutting block was then impacted into place. Anterior, posterior, and chamfer cuts were then made. The proximal tibia was then exposed. An external tibial alignment guide was placed. A tibial cut guide was then anchored in place and the proximal tibia was then resected. The posterior aspect of the knee was then opened up and any additional meniscus fragments and osteophytes were removed. The tibia measured to be a size E. The tibial plate was then placed in the appropriate rotation and the tibia was drilled and punched. Trial components were then placed. I used a size 12 medial congruent polyethylene insert. The knee was brought through a full range of motion and felt to be stable. The peg holes for the femoral component were then drilled. The patella was then everted and 9 mm was resected off the posterior aspect of the patella. The patella measured to be a size 31 oval. 3 peg holes were then drilled. A trial patella was placed. The knee was once again brought through a full range of motion and felt to be stable. Trial components were then removed. The surrounding soft tissues were injected with 100 cc of an orthopedic pain control cocktail. All components were then cemented into place with Biomet cement. The final polyethylene insert was then snapped into place. Once cement was dry the tourniquet was deflated. Hemostasis was obtained. A dilute betadyne lavage was then done for 3 minutes. The joint was then irrigated with normal saline solution. The subvastus arthrotomy was then closed with #1 Vicryl suture. The skin was closed with 2-0 Vicryl, 3-0V lock suture, and hailee. A soft compressive dressing was placed. She was then transferred to a hospital bed and taken to the postanesthesia care unit in stable condition. She tolerated the procedure well. Nico Arellano PA-C, was present for the entire procedure. He was critical for p atient positioning, prepping, draping, retraction exposure, wound closure and application of sterile dressing. I attest to the content of the Intraoperative Record and any orders documented therein. Any exceptions are noted below.
[2022-01-21] MEDS ORDERED: ALBUT/IPRATROP 3MG/0.5MG NEB 3 ML VIAL NEB STA (09:23)
[2022-01-21] MEDS ORDERED: ALBUT/IPRATROP 3MG/0.5MG NEB 3 ML VIAL ONE (09:31)
--- NOTE | 2022-01-21 09:55 | XRay Report ---
XR knee RT 1 or 2V routine CLINICAL HISTORY: Surgical Post Op TECHNIQUE: Single crosstable lateral view of the right knee was obtained. Comparison: None available at the time of this dictation. FINDINGS: Patient is status post total knee arthroplasty with expected postsurgical changes including soft tiss ue swelling, subcutaneous emphysema, and surgical staple placement. No periarticular lucency or hardw are fracture is seen. IMPRESSION: Expected postoperative appearance status post placement of total knee arthroplasty. ACT 112: Negative or not required by law. Electronically signed by: Adam Mirza M.D. 01/21/2022 9:54 AM
[2022-01-21] MEDS ORDERED: bisacodyL 10 MG SUPP PR PRN (11:09)
[2022-01-21] MEDS ORDERED: METOCLOPRAMIDE HCL INJ 5 MG/ML 2 ML VIAL IV PRN (11:09)
[2022-01-21] MEDS ORDERED: NALOXONE HCL 0.4 MG/1 ML VIAL/CARP IV PRN (11:09)
[2022-01-21] MEDS ORDERED: SODIUM CHLORIDE 0.9% 1000ML 1,000 ML IV SCH (11:09)
[2022-01-21] MEDS ORDERED: HYDROmorphone INJ 0.5 MG/0.5 ML SYR IV PRN (11:09)
[2022-01-21] MEDS ORDERED: oxyCODONE HCL IR 5 MG TAB (IMMEDIATE RELEASE) PO PRN (11:09)
[2022-01-21] MEDS ORDERED: MAGNESIUM HYDROXIDE SUSP 30 ML UDC PO PRN (11:09)
--- NOTE | 2022-01-21 11:16 | Anesthesiology Progress Note ---
Date of Service January 21, 2022 Anesthesia Post Procedure Vital Signs Vital Signs: Temp Pulse Resp BP Pulse Ox 01/21/22 11:00 75 19 104/73 96 01/21/22 10:45 72 16 106/60 95 01/21/22 10:30 73 15 100/60 95 01/21/22 10:15 36.4 C L 69 13 115/64 96 01/21/22 10:05 68 14 120/69 96 01/21/22 09:55 72 13 119/61 96 01/21/22 09:45 68 12 109/56 L 99 01/21/22 09:35 70 14 105/55 L 96 01/21/22 09:25 68 12 109/57 L 95 01/21/22 09:19 36.3 C L 84 15 100/48 L 89 L 01/21/22 06:56 37.0 C 97 H 18 141/86 H 94 Transfer of Care Handoff Completed per policy Notes Mental Status: alert / awake / arousable and participated in evaluation Patient Amnestic to Procedure: Yes Nausea / Vomiting: adequately controlled Pain: adequately controlled Airway Patency, RR, SpO2: stable & adequate BP & HR: stable & adequate Hydration State: stable & adequate Anesthetic Complications: no major complications apparent and Pt Satisfied with anesthetic care
[2022-01-21] MEDS ORDERED: ALBUTEROL HFA 8 GM INHALER INH PRN (13:10)
[2022-01-21] MEDS: KETOROLAC TROMETHAMINE 15 MG/ML VIAL IV SCH ×2 (13:15→19:39)
[2022-01-21] MEDS: ACETAMINOPHEN 500 MG TAB PO SCH ×2 (13:16→22:34)
[2022-01-21] MEDS: ceFAZolin 2000MG 2,000 MG/15 ML SYR IV SCH (15:36)
--- NOTE | 2022-01-21 18:54 | Consultation ---
Date of Consultation January 21, 2022 Assessment & Plan (1) Status post right knee replacement: Post op day# 0 S/P Right TKA by Dr Maldonado EBL#10ml -pain management per ortho -wound management per ortho -PT/OT as appropriate -DVT prophylaxis per ortho -incentive spirometry -monitor H&H for acute blood loss anemia; pre-op Hgb: 15 (2) Hypotension: Postop soft BPs noted, BPs have improved to low normal range. Patient asymptomatic -Monitor -Patient with history of borderline hypertension. Is not on outpatient antihypertensive medication Depression -Stable. Continue sertraline COPD -Continue albuterol as needed DVT Prophylaxis -SCDs per ortho Disposition per primary service Follows with Dr Sandoval for routine care Pt was seen and care coordinated with Dr Cabrera. See addendum Thank you for this consultation. We will follow the patient with you during their hospital stay. You can reach a member of the [facility] via [employer] Supervising Physician Co-Signing Physician Notes Patient seen and examined. History and plans as detailed by Alma Parra PA-C On exam General: Well nourished, well hydrated, no acute distress Eyes: PERRL, conjunctivae normal, not pale, anicteric sclerae, EOM intact bilaterally ENMT: External ear and nose normal, oropharynx normal Respiratory: Normal respiratory effort, no respiratory distress, lungs clear to auscultation, no crackles and no wheezes Cardiovascular: RRR S1 S2 Gastrointestinal (Abdomen): Abdomen is not distended, soft, non-tender to palpation, no guarding, no palpable hepatosplenomegaly, normal bowel sounds Musculoskeletal: Dressing over right knee surgical site Neurologic: Alert and oriented x 3, No focal weakness, sensation grossly intact Psychiatric: Alert and oriented x 3, euthymic affect History of Present Illness Requesting Physician: Dr Maldonado Reason for Consultation: hypotension Attending Physician: Nico Maldonado, DO History of Present Illness Patient is 86 y/o F with PMH COPD, depression, diastolic dysfunction, borderline HTN seen in medical consultation for hypotension. Patient had right TKA today by Dr Maldonado. Post op SBPs in 90's, patient asymptomatic. Most recent SBP 115. EBL#10ml. Patient not on antihypertensive medications at home. Post op patient reports had some wheezing that resolved after albuterol. Reports minimal pain. Denies shortness of breath, chest pain, dizziness, syncope. Patient currently sitting up in bedside chair. Denies fever/chills, diaphoresis, N/V/D/C, PORTILLO, vision changes, neck pain, palpitations, cough, sore throat, choking, otalgia, rhinorrhea, abdominal pain, paresthesias, weakness, extremity edema, rashes, urinary symptoms. Allergies Allergy/AdvReac Type Severity Reaction Status Date / Time cefoxitin [From Mefoxin] Allergy Mild Rash Verified 01/21/22 06:53 nickel Allergy Mild JEWELRY - Verified 01/21/22 06:53 MAKES EARS ITCH Home Medications Medication Instructions Recorded Confirmed Type albuterol sulfate 90 mcg/actuation 2 inh INHALATION Q6H PRN 08/05/19 01/21/22 History breath activated powder inhaler,sensor ibuprofen 200 mg tablet (Advil) 200 mg PO Q6H PRN 08/05/19 01/21/22 History sertraline 50 mg tablet (Zoloft) 50 mg PO DAILY 08/05/19 01/21/22 History amoxicillin 500 mg tablet 2,000 mg PO ONCE PRN #4 tab 01/15/20 01/21/22 Rx Patient History Medical History (Updated 01/21/22 @ 19:53 by Alma Parra PA-C) Borderline hypertension BP can fluctuate but mostly controlled per patient COPD with asthma SEASONAL/EXERCISE ASTHMA LAST USED RESCUE INHALER YESTERDAY Breathing stable per patient Depression Glaucoma NO EYE DROPS Follows routinely with eye doctor Hiatal hernia History of kidney stones No recent issues Peripheral neuropathy Bilateral feet Splenic artery aneurysm QUESTIONABLE- PCP MONITORING Did see vascular in the past - did not feel area was aneurysmal per patient (last imaging 2018) Stress incontinence Surgical History History of cataract surgery RT/LEFT History of left hip replacement (~09/2019) History of tonsillectomy and adenoidectomy History of tooth extraction Hx of cholecystectomy Hx of colonoscopy Hx of dilation and curettage Hx of lithotripsy Family History Aunt Family history of diabetes mellitus Aunt Family history of diabetes mellitus Other No family history of adverse response to anesthesia Social History Smoking Status: Former smoker (Social (1 pack/week)) Smoking End Date: FOR SHORT TIME; Second Hand Exposure: No; Do You Dip or Chew Tobacco: No; Hx Alcohol Use: Yes Hx Substance Use: No Preferred Language: Luxembourgish Communication Ability: Effective Bench Lay Out Technician Required: No Beliefs That Will Affect Care: None marital status: Current Living Situation: Family Current Living Situation Comment: LIVES WITH DAUGHTER Feels Safe at Home: Yes Safety Concerns: Feels Safe At This Time Assistive Devices: Walker Assistive Devices Comment: READING GLASSES/PARTIAL PLATE Review of Systems Review of Systems: All systems reviewed & are unremarkable except as noted in HPI & below Physical Exam Physical Exam: PE per Dr Cabrera Results & Data ([facility]) Vital Signs (Past 12 Hours) Vital Signs Temp Pulse Pulse Resp BP BP Pulse Ox 01/21/22 17:23 84 18 91 01/21/22 16:55 115/61 01/21/22 15:53 37 C 78 20 100/60 93 01/21/22 14:52 36.5 C 80 20 93/53 L 95 01/21/22 13:50 37.0 C 79 20 100/59 L 97 01/21/22 13:21 36.6 C 83 16 99/62 L 92 01/21/22 12:50 36.8 C 72 20 105/65 95 01/21/22 12:30 79 18 95/55 L 95 01/21/22 12:00 36.6 C 87 20 96/58 L 96 01/21/22 11:30 69 17 108/63 95 01/21/22 11:00 75 19 104/73 96 01/21/22 10:45 72 16 106/60 95 01/21/22 10:30 73 15 100/60 95 01/21/22 10:15 36.4 C L 69 13 115/64 96 01/21/22 10:05 68 14 120/69 96 01/21/22 09:55 72 13 119/61 96 01/21/22 09:45 68 12 109/56 L 99 01/21/22 09:35 70 14 105/55 L 96 01/21/22 09:25 68 12 109/57 L 95 01/21/22 09:19 36.3 C L 84 15 100/48 L 89 L 01/21/22 06:56 37.0 C 97 H 18 141/86 H 94
[2022-01-21] MEDS: DOCUSATE SODIUM 100 MG CAP PO SCH (20:22)
[2022-01-21] MEDS: ASPIRIN 81 MG ECTAB PO SCH (20:23)
[2022-01-21] MEDS ORDERED: SENNA 8.6 MG TAB PO SCH (21:00)
[2022-01-22] MEDS: ceFAZolin 2000MG 2,000 MG/15 ML SYR IV SCH (00:10)
[2022-01-22] MEDS: KETOROLAC TROMETHAMINE 15 MG/ML VIAL IV SCH ×2 (02:04→09:01)
[2022-01-22] MEDS: ACETAMINOPHEN 500 MG TAB PO SCH (06:05)
--- NOTE | 2022-01-22 07:16 | Orthopedic Progress Note ---
Date of Service January 22, 2022 Assessment & Plan (1) Status post right knee replacement: Overall she is doing very well. She is having much pain in the right knee. She will be seen by physical therapy today for ambulation and range of motion exercises. She is on aspirin for DVT prophylaxis. She can be discharged home later today. Her dressing can be changed after physical therapy. She will follow-up with orthopedics in 2 weeks. Lynne Alexandra was seen and examined at bedside this morning. Overall she is doing very well. She is not having much pain in her right knee. She is been up and ambulating to the bathroom. She has no complaints. Review of Systems All systems reviewed & are unremarkable except as noted in HPI & below. Physical Exam On physical examination of the right knee, the dressing is clean and dry. Her leg is out full extension. She has active dorsiflexion plantarflexion of her right ankle. Results & Data Results & Data Laboratory Results . Diagnostic Findings Postoperative x-rays of the right knee show the prosthesis to be in anatomic alignment without any evidence of fracture, desiccation, or loosening. PG Care Time/CCT Total # of Minutes Spent Total Time Spent with Patient: Total time spent is greater than 50% in coordination of care (as documented) at patient's floor/unit and/or counseling patient: Coding Level of Care Code 30708 Post Operative Follow-Up Diagnoses Status post right knee replacement Z96.651
--- NOTE | 2022-01-22 07:17 | Discharge Summary ---
Date of Service January 22, 2022 Admission HPI (Per Admitting) Alexandra is a pleasant 86-year-old female who is been doing chronic increasing right knee pain. X-rays and clinical examination have been diagnostic for advanced arthritis of the right knee. After failing conservative treatment, she has elected to proceed with a left total knee arthroplasty. Admission Exam (Per Admitting) On physical examination of the right knee, she has a slight valgus deformity. She has range of motion of 0 to 120 degrees. She has no instability. She has pain over the distal lateral femoral condyle and over the lateral joint line.. Principal Diagnosis Same as "Discharge Diagnosis" noted below under Discharge Instructions. Discharge Exam On physical examination of the right knee, the dressing is clean and dry. Her leg is out full extension. She has active dorsiflexion plantarflexion of her right ankle. Discharge Data Consultations 01/21/22 15:26 Consult Hospitalist Routine Procedures Performed Operation Date: 01/21/22 08:10 Actual Procedures p Right Total Knee Arthroplasty(Right) - Nico Maldonado DO Ordered Studies 01/21/22 05:00 US - OR guided needle placemen Routine Hospital Course (1) Status post right knee replacement: On January 21 2022 Alexandra arrived at [facility] and underwent a right knee replaced without complication. She had a spinal anesthetic. Postoperatively she was started on aspirin for DVT prophylaxis and transferred to the general orthopedic floors. Her hospital course was uneventful. On postop day #1, her vital signs were stable and her pain was well controlled. She was able to participate well with physical therapy doing ambulation and range of motion exercises. She was then discharged home. She will follow-up with orthopedics in 2 weeks. PG Care Time/CCT Total # of Minutes Spent Total Time Spent with Patient: Total time spent is greater than 50% in coordination of care (as documented) at patient's floor/unit and/or counseling patient: Discharge Plan Discharge Items Patient Disposition: Home - Home Health Services Reason For Visit: DJD Knee Right Discharge Diagnosis: Right knee replacement Activity: Per Instructions section Non-emergency contact: Surgeon Call non-emergency contact if: your wound has increased redness and your wound has increased drainage Follow-up/Referrals: Nancy Sandoval DO [Primary Care Provider] - Diet: Regular Addtl Attending Provider Instructions: Activity and Therapy Recommendations: * If you are using [facility] then therapy will be provided at your home until they feel you have accomplished all of your goals. * If you are using [facility] then Physical Therapy will be provided until they feel you are ready to start Outpatient Physical Therapy. * If you are not using home therapy then Outpatient Physical Therapy should start about 3-5 days from your day of surgery. Therapy will last about 6-10 weeks * It is important not to put a pillow under your knee when you are relaxing or sleeping. It is just as important to make sure you are getting your knee perfectly straight as it is to regain your knee bend. * You were shown a series of exercises in the hospital. Do these exercises three times each day including the exercises you were shown in physical therapy. * Get up and walk several times each day. For the first four weeks, try not to stand or walk for more than one hour at a time. If you do stand or walk for more than one hour, you will not hurt anything, but your leg will likely swell. * As you feel comfortable, you may change from the walker or crutches to a cane and then to independent walking. Medications: * Narcotic You will likely be sent home from the hospital with a prescription for the narcotic pain medication that worked best throughout your stay. * Aspirin Most patients will be required to take Aspirin 81mg twice a day for 6 weeks after surgery. This is obtained [id number] and a prescription is not necessary. * Other medications may be prescribed for specific circumstances. If you have any questions, please call the office at . * Resume previous home medications unless otherwise instructed TEDs/Elastic Stockings: The white elastic stockings help limit swelling and prevent blood clots from forming in your legs.~ The more you wear them, the more they work. Wear them for six weeks. Dressing Care: The dressing can be changed after physical therapy on postop day #1. Daily dry dressing changes for a few days, especially if the incision is still draining some. If the incision is not draining then you may leave the hailee open to air. If there is a little bit of drainage or if the hailee are getting stuck on your clothing then cover the incision with a dry dressing. The hailee will be removed at your 2 week follow-up appointment. Showering: You may shower 5 days from the day of surgery as long as the incision is no longer draining. You may shower with the hailee exposed. Let soapy water run over the hailee and pat them dry. Do not scrub or soak the incision. Things To Watch For: * Drainage from the incision site that occurs more than one week after your surgery. * Increased redness at the incision site. * Fever above 102 degrees Fahrenheit. * Unusual chest pain or shortness of breath. * Call [facility] at with any of the above problems Follow-Up Visit: Follow-up with Dr. Maldonado's PA (Nico Arellano) 2-3 weeks after your day of surgery. He will remove your hailee and answer any questions. If you have any additional questions or concerns, Dr Maldonado is usually in the office at the same time and will be available An appointment was probably scheduled when you signed-up for surgery in the office. If you have any questions call Office Instructions: More detailed instructions as well as Frequently Asked Questions were provided in a folder by our office when you signed-up for surgery. Please review these instructions when you get home. If you have any further questions or concerns, please feel free to call the office at [phone] Pending Studies at Discharge: No Stand-Alone Forms: My [facility], Smoking Cessation Medications and DC Order Prescriptions: New tramadol 50 mg tablet 50 mg PO Q6H PRN (Reason: pain) Qty: 30 RF: 0 aspirin 81 mg Tablet,Delayed Release (Dr/Ec) 81 mg PO BID 42 Days Qty: 0 RF: 0 Continued amoxicillin 500 mg tablet 2,000 mg PO ONCE PRN (Reason: prophylaxis) Qty: 4 RF: 2 ibuprofen [Advil] 200 mg Tablet 200 mg PO Q6H PRN (Reason: Pain) RF: 0 sertraline [Zoloft] 50 mg Tablet 50 mg PO DAILY RF: 0 albuterol sulfate 90 mcg/actuation Aero Powdr Breath Act W/Sensor 2 inh INHALATION Q6H PRN (Reason: SHORRTNESS OF BREATH) RF: 0 Discharge Orders: Discharge Order (Routine); Ordered 01/22/22 Ordered By: Nico Maldonado Admission Data Admit Date/Time: 01/21/22 09:19 Attending Provider: Nico Maldonado Admit Provider: Nico Maldonado Primary Care Provider: Nancy Sandoval Other Providers: [facility],Home Healthcare ; Alma Parra
[2022-01-22 07:21] LABS: Hemoglobin 12.8 g/dL (12.0-16.0); Mean Corpuscular Hemoglobin 27.6 pg (25-34); Mean Corpuscular Volume 86.2 fL (80-100); Mean Platelet Volume 10.9 fL (7.4-10.4); Platelet Count 189 K/uL (130-400); RDW Coefficient of Variation 13.9 % (11.5-14.5); RDW Standard Deviation 43.5 fL (36.4-46.3); Red Blood Count 4.64 M/uL (4.2-5.4); White Blood Count 16.75 K/uL (4.8-10.8)
[2022-01-22 07:38] LABS: BUN Creatinine Ratio 21.6 (10-20); Calcium 8.4 mg/dl (8.5-10.1); Creatinine Clr Calc Pharmacy 43.5 ml/min; Est GFR (African American) 61.7 ml/min; Est GFR (Non-African American) 53.3 ml/min; Potassium 4.2 mmol/L (3.5-5.1)
[2022-01-22] MEDS ORDERED: dexAMETHasone 4 MG TAB PO SCH (08:00)
[2022-01-22] MEDS ORDERED: MULTIVITAMIN TAB PO SCH (09:00)
[2022-01-22] MEDS ORDERED: SERTRALINE HCL 50 MG TABLET PO SCH (09:00)
[2022-01-22] MEDS: DOCUSATE SODIUM 100 MG CAP PO SCH (09:02)
[2022-01-22] MEDS: ASPIRIN 81 MG ECTAB PO SCH (09:02)
--- NOTE | 2022-01-22 11:07 | Hospitalist Progress Note ---
Date of Service January 22, 2022 Assessment & Plan (1) Status post right knee replacement: Plan: S/P S/P Right TKA by Dr Maldonado Acute postoperative blood loss anemia Pain management, activity, DVT prophylaxisas per ortho Continue wound Care PT/OT Continue Incentive spirometry monitor CBC No Indication for transfusion currently (2) Hypotension: Plan: BP improved with IV fluids Not on any antihypertensives Depression -Stable Continue sertraline COPD -Continue albuterol as needed Pulmonary Hygiene DVT Prophylaxis -SCDs per ortho Disposition Per primary service Thank you for this consultation. We will follow the patient with you during their hospital stay. You can reach a [facility] via [employer] Admission and Anticipated Discharge Date Admission Date: January 21, 2022 Subjective Patient is seen and examined at bedside States having a brief episode of cough with expectoration this morning which currently improved Denies any significant pain at right knee surgical site Also denies any chest pain, nausea, vomiting, abdominal pain Had 2 step today Review of Systems Review of Systems: All systems reviewed & are unremarkable except as noted in Subjective Physical Exam Physical Exam: Physical Exam: Vitals signs as noted above General Appearance:Moderately built and nourished, no apparent distress Head: normocephalic, Atraumatic Eyes: normal inspection, EOMI Neck: supple, Trachea midline Respiratory/Chest: Decreased breath sounds, CTA, No accessory muscle use Cardiovascular: S1, S2, No murmur Abdomen/GI:Soft, Non tender, Bowel sounds present Extremities/Musculoskeletal:normal inspection, no edema, Right Knee in surgical dressing Neurologic/Psych:AAOX3, grossly no focal neurological deficits Skin: normal color, warm Results & Data Results & Data ([facility]) Vital Signs (Past 12 Hours) Vital Signs Temp Pulse Resp BP Pulse Ox 01/22/22 07:41 92 01/22/22 05:42 36.5 C 72 18 134/68 94 01/22/22 02:26 36.5 C 78 18 133/70 92 Laboratory Results Short CBC 01/22/22 Range/Units 06:08 WBC 16.75 H (4.8-10.8) K/uL Hgb 12.8 (12.0-16.0) g/dL Hct 40.0 (37-47) % Plt Count 189 (130-400) K/uL BMP 01/22/22 06:08 Sodium 138 Potassium 4.2 Chloride 106 Carbon Dioxide 24 BUN 21 Creatinine 0.97 Glucose 117 H Calcium 8.4 L
== END 2022-01-22 14:58 | disposition home health service (06) ==
LOC: ASU 06:26 → 3E 06:26

== ENCOUNTER 2022-11-11 10:54 | Inpatient (IN) ==
[2022-11-11] MEDS ORDERED: SODIUM CHLORIDE 0.9% 1000ML 1,000 ML IV STA (11:02)
[2022-11-11] MEDS ORDERED: PANTOprazole 80 MG in DEXTROSE 5% 100 ML IV STA (11:04)
[2022-11-11] MEDS ORDERED: ONDANSETRON INJ 2 MG/ML 2 ML VIAL IV STA (11:04)
--- NOTE | 2022-11-11 11:15 | Emergency Department Note ---
Impression & Plan Colitis, Bloody diarrhea, Nausea ED Provider Note Provider: Tye Ladd MD DATE OF SERVICE: 11/11/2022 CHIEF COMPLAINT: Bloody diarrhea, lower abdominal pressure HISTORY OF PRESENT ILLNESS: Patient is a 87-year-old female history of depression on Zoloft and hiatal hernia presenting here today via ambulance from her home. Last evening and late last night and overnight developed some lower abdominal pressure and having multiple numerous episodes of bloody diarrhea. States some dry heaves but has not actually vomited. States some lower abdominal pressure and feels like she needs of a bowel movement try significant pain. Denies chest pain or shortness of breath. Feels a little bit weak. Has not been able to keep down any significant food with only a little bit of water this morning. Denies significant heartburn. Denies use of blood thinners or aspirin to me. Denies a history of similar PAST MEDICAL HISTORY: As noted above MEDICATIONS: Reviewed home medications does not include aspirin or blood thinner SOCIAL HISTORY: very distant former smoker in the 1960s PHYSICAL EXAM: GENERAL: alert and oriented in no acute distress on stretcher Head: normocephalic and atraumatic EYES: No injection, discharge or icterus. NECK: Trachea midline. ENT: Mucous membranes pink and moist. LUNGS: Airway patent. No retractions. Breath sounds clear HEART: Regular rate and rhythm. No chest wall tenderness ABDOMEN: Soft and non-tender, without guarding or rebound. SKIN: Acyanotic, warm, dry, without rashes EXTREMITIES: Without swelling, tenderness or deformity NEUROLOGICAL: No focal deficits. No aphasia. No facial droop or slurred speech. EK bpm normal sinus rhythm with left anterior fascicular block. No PVC or PAC noted. No clear acute ST segment elevation or depression with a QTc of 452. CONTINUOUS CARDIAC MONITORING: was ordered and showed a heart rate of 70s to 80s bpm in normal sinus rhythm to sinus bradycardia Patient's laboratory studies and imaging reviewed. Differential includes Diverticulosis, AVM, coagulopathy, colitis, inflammatory bowel disease, malignancy, Marleny-Soto tear, esophagitis, peptic ulcer disease, variceal bleed, gastritis, hemorrhoids, as well as other pathologies. IMPRESSION/MEDICAL DECISION MAKING: Patient on high risk anticoagulants or platelet agents but with multiple episodes of bloody diarrhea by report with some lower abdominal urgency developing overnight. Vitals here without significant hypotension or tachycardia upon arrival. Not severely tender in the lower abdomen with some pressure sensation question if she is having a lower GI bleed. Denies significant heartburn symptoms. Did give a dose of Protonix but lower suspicion for upper GI bleed at this point. Blood work was sent. We will complete a CT abdomen pelvis to look for signs of active bleeding or diverticulitis given her bloody diarrhea report. Given some Zofran to help with nausea. Hemoglobin slightly elevated 16.1. White blood cell count normal at 10.2. No significant electrolyte abnormality or signs of renal dysfunction. No evidence of hepatitis or pancreatitis based on labs with a negative COVID here. Troponin within normal limits as well and EKG is reassuring and at this is cardiac in nature. CT imaging completed the abdomen pelvis shows nonspecific colitis the majority of the colon prickly of the ascending colon with some pericolonic fat stranding. Given her blood work and evaluation I have a low suspicion for ischemic colitis at this point. Does have a large hiatal hernia as well as some thickened endometrium and a calcified splenic artery aneurysm. Discussed with the patient following up regarding the thickened endometrium given her age for further evaluation with a pelvic ultrasound. She acknowledged this as well as her daughter who is at bedside. Discussed with the patient and family findings. Patient having improvement of her nausea but feels like she may need to have a bloody bowel movement again. Not unstable but discussed with her given her age options of further observation here which in shared decision-making she feels most comfortable with. Do not believe antibiotics at this point are necessarily indicated as have a low suspicion for bacterial component.. Low suspicion this represents C. difficile given the significant bloody component. DIAGNOSIS: Colitis, bloody diarrhea, nausea DISPOSITION: Hospitalist will evaluate Patient was agreeable with this plan. Past Med/Surg History Medical History Borderline hypertension BP can fluctuate but mostly controlled per patient COPD with asthma SEASONAL/EXERCISE ASTHMA LAST USED RESCUE INHALER YESTERDAY Breathing stable per patient Depression Glaucoma NO EYE DROPS Follows routinely with eye doctor Hiatal hernia History of kidney stones No recent issues Peripheral neuropathy Bilateral feet Splenic artery aneurysm QUESTIONABLE- PCP MONITORING Did see vascular in the past - did not feel area was aneurysmal per patient (last imaging 2018) Stress incontinence Surgical History History of cataract surgery RT/LEFT History of left hip replacement (~09/2019) History of tonsillectomy and adenoidectomy History of tooth extraction Hx of cholecystectomy Hx of colonoscopy Hx of dilation and curettage Hx of lithotripsy Family History Aunt Family history of diabetes mellitus Aunt Family history of diabetes mellitus Other No family history of adverse response to anesthesia Social History Smoking Status: Never smoker Second Hand Exposure: No; Hx Alcohol Use: Yes Hx Substance Use: No Preferred Language: British Communication Ability: Effective Visual Merchandising Specialist Required: No Beliefs That Will Affect Care: None marital status: Current Living Situation: Family Current Living Situation Comment: LIVES WITH DAUGHTER Feels Safe at Home: Yes Assistive Devices: Walker Allergies Allergies Allergy/AdvReac Type Severity Reaction Status Date / Time cefoxitin [From Mefoxin] Allergy Mild Rash Verified 01/21/22 06:53 nickel Allergy Mild JEWELRY - Verified 01/21/22 06:53 MAKES EARS ITCH Home Meds Home Medications Medication Instructions Recorded Confirmed ibuprofen 200 mg tablet (Advil) 200 mg PO Q6H PRN Pain 08/05/19 11/11/22 sertraline 50 mg tablet (Zoloft) 50 mg PO DAILY 08/05/19 11/11/22 ipratropium 20 mcg-albuterol 100 1 puff inhalation QID PRN 11/11/22 11/11/22 mcg/actuation mist for inhalation Shortness Of Breath Or Wheezing (Combivent Respimat) Previous Rx's Medication Instructions Recorded amoxicillin 500 mg tablet 2,000 mg PO ONCE PRN prophylaxis 01/15/20 #4 tabs Results & Data (ED) Vital Signs Vital Signs - 24 hr 11/11/22 10:59 11/11/22 10:59 11/11/22 11:21 Temperature 36.5 C Temperature Source Oral Pulse Rate 89 76 Pulse Rate [Right Finger] 89 Respiratory Rate 16 16 Respiratory Effort / Characteristics Respiratory Depth Blood Pressure 155/83 H Blood Pressure [Right Arm] Blood Pressure Mean 107 Blood Pressure Mean [Right Arm] Pulse Oximetry 98 98 Oxygen Delivery Method Room Air Room Air Room Air Sepsis Recent Fever Within 48 Hours No Sepsis New/Unexplained Change in Mental Status No Sepsis Action Taken by Nursing No Action Required 11/11/22 11:23 11/11/22 12:24 11/11/22 12:42 Temperature Temperature Source Pulse Rate 79 Pulse Rate [Right Finger] 76 72 Respiratory Rate 20 20 Respiratory Effort / Characteristics Non-Labored Non-Labored Respiratory Depth Normal Normal Blood Pressure Blood Pressure [Right Arm] 161/77 H 136/71 Blood Pressure Mean Blood Pressure Mean [Right Arm] 105 92 Pulse Oximetry 98 97 Oxygen Delivery Method Room Air Room Air Sepsis Recent Fever Within 48 Hours Sepsis New/Unexplained Change in Mental Status Sepsis Action Taken by Nursing 11/11/22 13:30 Temperature Temperature Source Pulse Rate Pulse Rate [Right Finger] 74 Respiratory Rate 20 Respiratory Effort / Characteristics Non-Labored Respiratory Depth Normal Blood Pressure Blood Pressure [Right Arm] 154/72 H Blood Pressure Mean Blood Pressure Mean [Right Arm] 99 Pulse Oximetry 96 Oxygen Delivery Method Room Air Sepsis Recent Fever Within 48 Hours Sepsis New/Unexplained Change in Mental Status Sepsis Action Taken by Nursing Laboratory Data 11/11/22 11:09 11/11/22 11:09 Lab Results 11/11/22 11/11/22 11/11/22 Range/Units 11:09 11:09 11:09 WBC 10.28 (4.8-10.8) K/ul RBC 5.74 H (4.20-5.40) M/uL Hgb 16.1 H (12.0-16.0) g/dl POC Hgb (12.0-16.0) g/dl Hct 47.4 H (37.0-47.0) % POC Hct (37-47) % MCV 82.6 (80.0-100.0) fL MCH 28.0 (25.0-34.0) pg MCHC 34.0 (32.0-36.0) g/dL RDW Std Deviation 40.8 (36.4-46.3) fL RDW Coeff of Cuauhtemoc 13.6 (11.5-14.5) % Plt Count 169 (130-400) K/uL MPV 10.8 (9.4-12.4) fL Immature Gran % (Auto) 0.5 % Neut % (Auto) 87.2 % Lymph % (Auto) 7.2 % Gonzales % (Auto) 4.3 % Eos % (Auto) 0.4 % Baso % (Auto) 0.4 % Neut # (Auto) 8.97 H (1.40-6.50) K/uL Lymph # (Auto) 0.74 L (1.2-3.4) K/uL Gonzales # (Auto) 0.44 (0.11-0.59) K/uL Eos # (Auto) 0.04 (0-0.50) K/uL Baso # (Auto) 0.04 (0-0.2) K/uL Immature Gran # (Auto) 0.05 (0.01-0.20) K/uL PT 11.0 (9.0-12.0) Seconds INR 1.0 (0.9-1.1) POC Sodium (135-144) mmol/L Sodium 140 (136-145) mmol/L POC Potassium (3.3-5.0) mmol/L Potassium 3.9 (3.5-5.1) mmol/L POC Chloride (101-112) mmol/L Chloride 107 (98-107) mmol/L Carbon Dioxide 25 (21-32) mmol/L POC Total CO2 (24-31) mmol/L Anion Gap 8 (3-11) POC Anion Gap (16-25) mmol/L POC BUN (7-18) mg/dl BUN 20 (6-23) mg/dl Creatinine 0.84 (0.6-1.2) mg/dl POC Creatinine (0.6-1.3) mg/dl Est Cr Clr Drug Dosing 49.3 ml/min Est GFR ( Amer) 72.9 ml/min Est GFR (Non-Af Amer) 62.9 ml/min BUN/Creatinine Ratio 23.8 H (10-20) Glucose 139 H (70-99(Fasting)) mg/dl POC Glucose (other) (70-99) mg/dl Calcium 9.3 (8.6-10.3) mg/dl POC Ioniz Calcium Alfred (1.12-1.32) mmol/l Total Bilirubin 0.6 (0.2-1.0) mg/dl AST 14 (13-39) U/L ALT 11 (7-52) U/L Alkaline Phosphatase 88 (34-104) U/L Troponin I High Sens 5.7 (0-14) pg/ml Total Protein 6.9 (6.0-8.3) gm/dl Albumin 3.9 (3.4-5.0) gm/dl Globulin 3.0 (2.5-4.0) gm/dl Albumin/Globulin Ratio 1.3 (0.9-2) Lipase 74 (11-82) U/L SARS-CoV-2, RNA, NAAT (NEGATIVE) Blood Type Antibody Screen 11/11/22 11/11/22 11/11/22 Range/Units 11:09 11:15 11:15 WBC (4.8-10.8) K/ul RBC (4.20-5.40) M/uL Hgb (12.0-16.0) g/dl POC Hgb 15.0 (12.0-16.0) g/dl Hct (37.0-47.0) % POC Hct 44 (37-47) % MCV (80.0-100.0) fL MCH (25.0-34.0) pg MCHC (32.0-36.0) g/dL RDW Std Deviation (36.4-46.3) fL RDW Coeff of Cuauhtemoc (11.5-14.5) % Plt Count (130-400) K/uL MPV (9.4-12.4) fL Immature Gran % (Auto) % Neut % (Auto) % Lymph % (Auto) % Gonzales % (Auto) % Eos % (Auto) % Baso % (Auto) % Neut # (Auto) (1.40-6.50) K/uL Lymph # (Auto) (1.2-3.4) K/uL Gonzales # (Auto) (0.11-0.59) K/uL Eos # (Auto) (0-0.50) K/uL Baso # (Auto) (0-0.2) K/uL Immature Gran # (Auto) (0.01-0.20) K/uL PT (9.0-12.0) Seconds INR (0.9-1.1) POC Sodium 141 (135-144) mmol/L Sodium (136-145) mmol/L POC Potassium 3.7 (3.3-5.0) mmol/L Potassium (3.5-5.1) mmol/L POC Chloride 106 (101-112) mmol/L Chloride (98-107) mmol/L Carbon Dioxide (21-32) mmol/L POC Total CO2 23 L (24-31) mmol/L Anion Gap (3-11) POC Anion Gap 17.0 (16-25) mmol/L POC BUN 18 (7-18) mg/dl BUN (6-23) mg/dl Creatinine (0.6-1.2) mg/dl POC Creatinine 0.9 (0.6-1.3) mg/dl Est Cr Clr Drug Dosing ml/min Est GFR ( Amer) ml/min Est GFR (Non-Af Amer) ml/min BUN/Creatinine Ratio (10-20) Glucose (70-99(Fasting)) mg/dl POC Glucose (other) 140 H (70-99) mg/dl Calcium (8.6-10.3) mg/dl POC Ioniz Calcium Alfred 1.04 L (1.12-1.32) mmol/l Total Bilirubin (0.2-1.0) mg/dl AST (13-39) U/L ALT (7-52) U/L Alkaline Phosphatase (34-104) U/L Troponin I High Sens (0-14) pg/ml Total Protein (6.0-8.3) gm/dl Albumin (3.4-5.0) gm/dl Globulin (2.5-4.0) gm/dl Albumin/Globulin Ratio (0.9-2) Lipase (11-82) U/L SARS-CoV-2, RNA, NAAT NEGATIVE (NEGATIVE) Blood Type B Positive Antibody Screen NEGATIVE Administered Medications Discontinued Medications Sodium Chloride (Nss 1000ml) 1,000 mls @ 999 mls/hr IV .Q1H1M STA Stop: 11/11/22 12:02 Last Infusion: 11/11/22 13:50 Dose: 0 mls/hr Documented By: Admin: 11/11/22 11:12 Dose: 999 mls/hr Documented By: SADIA Pantoprazole Sodium 80 mg/ (Dextrose) 100 mls @ 400 mls/hr IV ONE STA Stop: 11/11/22 11:18 Last Infusion: 11/11/22 12:37 Dose: 0 mls/hr Documented By: Admin: 11/11/22 11:30 Dose: 400 mls/hr Documented By: MICA Ioversol (Optiray 320 500ml) 114 ml IV ONCE ONE Stop: 11/11/22 11:49 Last Admin: 11/11/22 11:51 Dose: 114 ml Documented By: MISSAEL Ondansetron HCl (Ondansetron Inj 2 Mg/Ml 2 Ml Vial) 4 mg IV NOW STA Stop: 11/11/22 11:05 Last Admin: 11/11/22 11:24 Dose: 4 mg Documented By: MICA Imaging Data Radiologist's Impression: Abdomen/Pelvis CTA 11/11/22 11:02 CT angio abdomen pelvis w con CT DOSE: 300.68 mGy.cm CLINICAL HISTORY: lower abd pain, bloody diarrhea TECHNIQUE: Multiaxial CT images of the abdomen and pelvis were performed following the intravenous administration of 114 cc of Optiray 320 to evaluate the major arterial structures. Maximal intensity projection images were also obtained. A dose lowering technique was utilized adhering to the principles of ALARA. COMPARISON STUDY: None. FINDINGS: Linear densities at the lung bases consistent with subsegmental atelectasis. No pneumoperitoneum. No pneumatosis. There is a left total hip arthroplasty. No acute fractures identified. There is a large hiatus hernia containing the majority stomach and mid transverse colon. Cholecystectomy. The liver, spleen, adrenal glands, and pancreas unremarkable. Bilateral cortical renal thinning is noted. There are small left peripelvic renal cysts. No ureteral stones. No hydronephrosis. No retroperitoneal lymphadenopathy. No pelvic lymphadenopathy. The bladder is decompressed and not well evaluated. Possible thickening of the endometrium measuring up to 1.5 cm. This is partially obscured by the metallic artifact from the left hip prosthesis. A few colonic diverticula. No dilated loops of bowel to suggest an obstruction. Mild circumferential thickening throughout the majority of the colon most pronounced within the descending colon with mild pericolonic fat stranding. Findings are consistent with a nonspecific colitis. This favors an infectious or inflammatory process. Ischemic colitis is considered less likely but not entirely excluded. Normal appendix. Moderate calcified plaque within the normal caliber abdominal aorta and iliac arteries. No significant stenosis or occlusion within the celiac, superior mesenteric, inferior mesenteric, or renal arteries. There is a partially calcified 1.8 cm splenic artery aneurysm on image 63. IMPRESSION: 1. Mild circumferential thickening throughout the majority of the colon most pronounced within the descending colon with mild pericolonic fat stranding. Findings are consistent with a nonspecific colitis. This favors an infectious or inflammatory process. Ischemic colitis is considered less likely but not entirely excluded. 2. A large hiatus hernia containing the majority the stomach and mid transverse colon. 3. Possible thickening of the endometrium measures up to 1.5 cm. Follow-up nonemergent pelvic ultrasound recommended for further evaluation. 4. A partially calcified 1.8 cm splenic artery aneurysm. ACT 112: Negative or not required by law. Electronically signed by: Alexys Monroe M.D. 11/11/2022 12:18 PM Discharge Plan Visit Data Chief Complaint: Nausea Stated Complaint: ILLNESS, HEMATOCHZIA ED Provider: Tye Ladd Discharge Problem: Colitis, Bloody diarrhea, Nausea Patient Disposition: Being Evaluated by Hospitalist Forms Stand Alone Forms: [facility] [employer] Prescriptions Prescriptions: No Action amoxicillin 500 mg tablet 2,000 mg PO ONCE PRN (Reason: prophylaxis) Qty: 4 2RF Rx Instructions: ONE HOUR PRIOR TO DENTAL PROCEDURE ibuprofen [Advil] 200 mg Tablet 200 mg PO Q6H PRN (Reason: Pain) sertraline [Zoloft] 50 mg Tablet 50 mg PO DAILY Patient Comments: has no routine Combivent Respimat 20-100 mcg/actuation mist 1 puff INHALATION QID PRN (Reason: Shortness Of Breath Or Wheezing) Referrals Referrals: Nancy Sandoval, [Primary Care Provider] -
[2022-11-11 11:27] LABS: Basophils # (auto) 0.04 K/uL (0-0.2); Basophils % (auto) 0.4 %; Eosinophils # (auto) 0.04 K/uL (0-0.50); Eosinophils % (auto) 0.4 %; Hematocrit (blood only) 47.4 % (37.0-47.0); Hemoglobin 16.1 g/dl (12.0-16.0); Immature Granulocytes # (auto) 0.05 K/uL (0.01-0.20); Immature Granulocytes % (auto) 0.5 %; Lymphocytes # (auto) 0.74 K/uL (1.2-3.4); Lymphocytes % (auto) 7.2 %; Mean Corpuscular Volume 82.6 fL (80.0-100.0); Mean Platelet Volume 10.8 fL (9.4-12.4); Monocytes # (auto) 0.44 K/uL (0.11-0.59); Monocytes % (auto) 4.3 %; Neutrophils # (auto) 8.97 K/uL (1.40-6.50); Neutrophils % (auto) 87.2 %; Platelet Count 169 K/uL (130-400); RDW Coefficient of Variation 13.6 % (11.5-14.5); RDW Standard Deviation 40.8 fL (36.4-46.3); Red Blood Count 5.74 M/uL (4.20-5.40); White Blood Count 10.28 K/ul (4.8-10.8)
[2022-11-11 11:28] LABS: iSTAT Creatinine 0.9 mg/dl (0.6-1.3); iSTAT Ionized Calcium 1.04 mmol/l (1.12-1.32); iSTAT Potassium 3.7 mmol/L (3.3-5.0)
[2022-11-11 11:41] LABS: Albumin Globulin Ratio 1.3 (0.9-2); Albumin Level 3.9 gm/dl (3.4-5.0); BUN Creatinine Ratio 23.8 (10-20); Bilirubin,Total 0.6 mg/dl (0.2-1.0); Calcium 9.3 mg/dl (8.6-10.3); Creatinine Clr Calc Pharmacy 49.3 ml/min; Est GFR (African American) 72.9 ml/min; Est GFR (Non-African American) 62.9 ml/min; Potassium 3.9 mmol/L (3.5-5.1); Total Protein 6.9 gm/dl (6.0-8.3)
[2022-11-11 11:47] LABS: Troponin I High Sensitivity 5.7 pg/ml (0-14)
[2022-11-11] MEDS ORDERED: OPTIRAY 320 500ml IV ONE (11:48)
--- NOTE | 2022-11-11 12:19 | CT Scan Report ---
CT angio abdomen pelvis w con CT DOSE: 300.68 mGy.cm CLINICAL HISTORY: lower abd pain, bloody diarrhea TECHNIQUE: Multiaxial CT images of the abdomen and pelvis were performed following the intravenous ad ministration of 114 cc of Optiray 320 to evaluate the major arterial structures. Maximal intensity pr ojection images were also obtained. A dose lowering technique was utilized adhering to the principle s of ALARA. COMPARISON STUDY: None. FINDINGS: Linear densities at the lung bases consistent with subsegmental atelectasis. No pneumoperit oneum. No pneumatosis. There is a left total hip arthroplasty. No acute fractures identified. There i s a large hiatus hernia containing the majority stomach and mid transverse colon. Cholecystectomy. Th e liver, spleen, adrenal glands, and pancreas unremarkable. Bilateral cortical renal thinning is note d. There are small left peripelvic renal cysts. No ureteral stones. No hydronephrosis. No retroperito gianna lymphadenopathy. No pelvic lymphadenopathy. The bladder is decompressed and not well evaluated. Possible thickening of the endometrium measuring up to 1.5 cm. This is partially obscured by the meta llic artifact from the left hip prosthesis. A few colonic diverticula. No dilated loops of bowel to s uggest an obstruction. Mild circumferential thickening throughout the majority of the colon most pron ounced within the descending colon with mild pericolonic fat stranding. Findings are consistent with a nonspecific colitis. This favors an infectious or inflammatory process. Ischemic colitis is conside red less likely but not entirely excluded. Normal appendix. Moderate calcified plaque within the normal caliber abdominal aorta and iliac arteries. No significan t stenosis or occlusion within the celiac, superior mesenteric, inferior mesenteric, or renal arterie s. There is a partially calcified 1.8 cm splenic artery aneurysm on image 63. IMPRESSION: 1. Mild circumferential thickening throughout the majority of the colon most pronounced within the de scending colon with mild pericolonic fat stranding. Findings are consistent with a nonspecific coliti s. This favors an infectious or inflammatory process. Ischemic colitis is considered less likely but not entirely excluded. 2. A large hiatus hernia containing the majority the stomach and mid transverse colon. 3. Possible thickening of the endometrium measures up to 1.5 cm. Follow-up nonemergent pelvic ultraso und recommended for further evaluation. 4. A partially calcified 1.8 cm splenic artery aneurysm. ACT 112: Negative or not required by law. Electronically signed by: Alexys Monroe M.D. 11/11/2022 12:18 PM
--- NOTE | 2022-11-11 13:33 | History & Physical Report ---
Date of Service November 11, 2022 Assessment & Plan (1) Colitis: (2) Bloody diarrhea: Plan: Patient is 87 y/o F with PMH COPD, borderline HTN, depression, h/o splenic artery aneurysm presented to ER with c/o dry heaves and bloody diarrhea today. Denies fevers, vomiting In ER afebrile, vital stable. No leukocytosis. H/H: CT abdomen pelvis: Mild circumferential thickening throughout the majority of the colon most pronounced within the descending colon with mild pericolonic fat stranding. Findings are consistent with a nonspecific colitis. This favors an infectious or inflammatory process. Ischemic colitis is considered less likely but not entirely excluded. A large hiatus hernia containing the majority the stomach and mid transverse colon. In ER given 1L NSS, Zofran, Protonix IV Stool cultures, C. difficile pending Gentle IVF Clear liquid diet for now Unasyn CBC, BMP in a.m. (3) Dysuria: Plan: Patient reports dysuria for couple of days UA pending (4) Abnormal computed tomography of abdomen and pelvis: Plan: CT abdomen pelvis: Possible thickening of the endometrium measures up to 1.5 cm. Patient will need further outpatient follow-up with ultrasound pelvis, gynecology Discussed further work-up with patient who wishes to defer at this time and follow-up outpatient (5) COPD with asthma: Plan: No signs exacerbation Continue Combivent as needed (6) Depression: Plan: Continue sertraline (7) Borderline hypertension: Plan: History of borderline hypertension. Not on medication Monitor BPs DVT Prophylaxis SCDs Full Code as per discussion with pt Follows with Dr Sandoval for routine care Pt was seen and care coordinated with Dr Cabrera. See addendum I spent a total of 62 minutes reviewing notes, outpatient records, labs, medication, coordinating, documenting and providing care for this patient excluding time spent in the performance of separately billed services. History of Present Illness Chief Complaint: Bloody diarrhea Primary Care Provider: Nancy Sandoval DO Patient is 87 y/o F with PMH COPD, borderline HTN, depression, h/o splenic artery aneurysm presented to ER with c/o bloody diarrhea today. Patient states yesterday was in her normal health and ate spaghetti meatballs for dinner. She states woke up 5 AM this morning with bloody diarrhea. She reports approximately 10 episodes of bloody diarrhea. Also reports lower abdominal cramping. Has had dry heaves without vomiting. Reports was sweating when she was having dry heaves and diarrhea episodes. No known fever. Denies ill contacts. Took prophylactic amoxicillin prior to dental exam approximately 1 month ago, denies any other antibiotic use. States past couple days with mild dysuria, denies noted hematuria. Has chronic stress incontinence. Reports chronic intermittent cough. Denies any increased cough or shortness of breath. Denies PORTILLO, dizziness, syncope, neck pain, CP, SOB, rhinorrhea, weakness, extremity weakness, extremity edema, rashes. Allergies Allergy/AdvReac Type Severity Reaction Status Date / Time cefoxitin [From Mefoxin] Allergy Mild Rash Verified 01/21/22 06:53 nickel Allergy Mild JEWELRY - Verified 01/21/22 06:53 MAKES EARS ITCH Home Medications Medication Instructions Recorded Confirmed Type ibuprofen 200 mg tablet (Advil) 200 mg PO Q6H PRN Pain 08/05/19 11/11/22 History sertraline 50 mg tablet (Zoloft) 50 mg PO DAILY 08/05/19 11/11/22 History amoxicillin 500 mg tablet 2,000 mg PO ONCE PRN prophylaxis 01/15/20 11/11/22 Rx #4 tabs ipratropium 20 mcg-albuterol 100 1 puff inhalation QID PRN 11/11/22 11/11/22 History mcg/actuation mist for inhalation Shortness Of Breath Or Wheezing (Combivent Respimat) Past Med/Surg History Medical History Borderline hypertension BP can fluctuate but mostly controlled per patient COPD with asthma SEASONAL/EXERCISE ASTHMA LAST USED RESCUE INHALER YESTERDAY Breathing stable per patient Depression Glaucoma NO EYE DROPS Follows routinely with eye doctor Hiatal hernia History of kidney stones No recent issues Peripheral neuropathy Bilateral feet Splenic artery aneurysm QUESTIONABLE- PCP MONITORING Did see vascular in the past - did not feel area was aneurysmal per patient (last imaging 2018) Stress incontinence Surgical History History of cataract surgery RT/LEFT History of left hip replacement (~09/2019) History of tonsillectomy and adenoidectomy History of tooth extraction Hx of cholecystectomy Hx of colonoscopy Hx of dilation and curettage Hx of lithotripsy Family History Aunt Family history of diabetes mellitus Aunt Family history of diabetes mellitus Other No family history of adverse response to anesthesia Social History Smoking Status: Never smoker Second Hand Exposure: No; Hx Alcohol Use: Yes Hx Substance Use: No Preferred Language: Tajik Communication Ability: Effective Grain Elevator Motor Starter Required: No Beliefs That Will Affect Care: None marital status: Current Living Situation: Family Current Living Situation Comment: LIVES WITH DAUGHTER Feels Safe at Home: Yes Assistive Devices: Walker Review of Systems Review of Systems: All systems reviewed & are unremarkable except as noted in HPI & below Physical Exam Physical Exam: General: no distress, WDWN Head: normocephalic, atraumatic Eyes: conjunctiva non-injected, anicteric ENT: normal inspection external ears, nose, mucous membranes moist Neck: supple, trachea midline Lungs: clear, no respiratory distress, no wheezing/rhonchi/rales CV: RRR, no murmur, no pretibial edema Abd: normal BS, soft, non-tender Ext: no cyanosis, no calf tenderness Neuro: A&O x 3, no focal deficits noted, normal affect Skin: warm, dry Results & Data Results & Data Vital Signs (Past 12 Hours) Vital Signs Temp Pulse Pulse Resp BP BP Pulse Ox 11/11/22 12:24 79 11/11/22 11:23 76 20 161/77 H 98 11/11/22 11:21 76 16 11/11/22 10:59 89 98 11/11/22 10:59 36.5 C 89 16 155/83 H 98 O2 Del Method 11/11/22 12:24 11/11/22 11:23 Room Air 11/11/22 11:21 Room Air 11/11/22 10:59 Room Air 11/11/22 10:59 Room Air Laboratory Results Short CBC 11/11/22 Range/Units 11:09 WBC 10.28 (4.8-10.8) K/ul Hgb 16.1 H (12.0-16.0) g/dl Hct 47.4 H (37.0-47.0) % Plt Count 169 (130-400) K/uL BMP 11/11/22 11:09 Sodium 140 Potassium 3.9 Chloride 107 Carbon Dioxide 25 BUN 20 Creatinine 0.84 Glucose 139 H Calcium 9.3 Liver Function 11/11/22 Range/Units 11:09 Total Bilirubin 0.6 (0.2-1.0) mg/dl AST 14 (13-39) U/L ALT 11 (7-52) U/L Alkaline Phosphatase 88 (34-104) U/L Albumin 3.9 (3.4-5.0) gm/dl Diagnostic Findings Abdomen/Pelvis CTA 11/11/22 11:02 CT angio abdomen pelvis w con CT DOSE: 300.68 mGy.cm CLINICAL HISTORY: lower abd pain, bloody diarrhea TECHNIQUE: Multiaxial CT images of the abdomen and pelvis were performed following the intravenous administration of 114 cc of Optiray 320 to evaluate the major arterial structures. Maximal intensity projection images were also obtained. A dose lowering technique was utilized adhering to the principles of ALARA. COMPARISON STUDY: None. FINDINGS: Linear densities at the lung bases consistent with subsegmental atelectasis. No pneumoperitoneum. No pneumatosis. There is a left total hip arthroplasty. No acute fractures identified. There is a large hiatus hernia containing the majority stomach and mid transverse colon. Cholecystectomy. The liver, spleen, adrenal glands, and pancreas unremarkable. Bilateral cortical renal thinning is noted. There are small left peripelvic renal cysts. No ureteral stones. No hydronephrosis. No retroperitoneal lymphadenopathy. No pelvic lymphadenopathy. The bladder is decompressed and not well evaluated. Possible thickening of the endometrium measuring up to 1.5 cm. This is partially obscured by the metallic artifact from the left hip prosthesis. A few colonic diverticula. No dilated loops of bowel to suggest an obstruction. Mild circumferential thickening throughout the majority of the colon most pronounced within the descending colon with mild pericolonic fat stranding. Findings are consistent with a nonspecific colitis. This favors an infectious or inflammatory process. Ischemic colitis is considered less likely but not entirely excluded. Normal appendix. Moderate calcified plaque within the normal caliber abdominal aorta and iliac arteries. No significant stenosis or occlusion within the celiac, superior mesenteric, inferior mesenteric, or renal arteries. There is a partially calcified 1.8 cm splenic artery aneurysm on image 63. IMPRESSION: 1. Mild circumferential thickening throughout the majority of the colon most pronounced within the descending colon with mild pericolonic fat stranding. Findings are consistent with a nonspecific colitis. This favors an infectious or inflammatory process. Ischemic colitis is considered less likely but not entirely excluded. 2. A large hiatus hernia containing the majority the stomach and mid transverse colon. 3. Possible thickening of the endometrium measures up to 1.5 cm. Follow-up nonemergent pelvic ultrasound recommended for further evaluation. 4. A partially calcified 1.8 cm splenic artery aneurysm. ACT 112: Negative or not required by law. Electronically signed by: Alexys Monroe M.D. 11/11/2022 12:18 PM Supervising Physician Co-Signing Physician Notes History and physical exam performed by me. Notable for 87-year-old woman who presents with bloody diarrhea that started around 5 AM this morning, associated with abdominal cramping and dry heaves. Also reports dysuria over the past few days Exam was unremarkable. Lab was notable for hemoglobin of 16. UA not suggestive of UTI. CT abdomen pelvis noted Mild circumferential thickening throughout the majority of the colon most pronounced within the descending colon consistent with nonspecific colitis. Colitis Bloody diarrhea Check C diff and stool studies Monitor hb GI consult Outpatient records noted allergy to ofloxacin. Patient remembers allergy to mefoxin but not fluoroquinolones. Tolerates amoxicillin. Will do unasyn for now Other plans as detailed by Alma Parra PA-C
[2022-11-11] MEDS ORDERED: AMPICILLIN/SULBACTAM SOD 3,000 MG in 0.9 % SODIUM CHLORIDE 100 ML IV ONE (14:30)
[2022-11-11 14:34] LABS: Appearance Urine Clear (Clear); Bilirubin Urine Negative (Negative); Blood Urine Negative (Negative); Color Urine Yellow; Glucose Urine UA Negative (Negative); Ketones Urine Negative (Negative); Leukocyte Esterase Urine Negative (Negative); Nitrite Urine Negative (Negative); Protein Urine Negative (Negative); Specific Gravity Urine > 1.045 (1.000-1.030); Urobilinogen Urine Negative (Negative); pH Urine 5.5 (4.5-7.5)
[2022-11-11] MEDS ORDERED: SODIUM CHLORIDE 0.9% 1000ML 1,000 ML IV SCH (15:55)
[2022-11-11] MEDS ORDERED: ACETAMINOPHEN 325 MG TAB PO PRN (15:55)
[2022-11-11] MEDS ORDERED: ONDANSETRON INJ 2 MG/ML 2 ML VIAL IV PRN (15:55)
[2022-11-11] MEDS ORDERED: IPRATROPIUM BROMIDE/ALBUTEROL respimat INH INH PRN (15:55)
[2022-11-11] MEDS ORDERED: ALBUTEROL HFA 8 GM INHALER INH PRN (16:09)
[2022-11-11] MEDS ORDERED: IPRATROPIUM BROMIDE HFA INHALER INH PRN (16:09)
--- NOTE | 2022-11-11 16:48 | Electrocardiogram Report ---
Test Reason : Blood Pressure : / mmHG Vent. Rate : 071 BPM Atrial Rate : 071 BPM P-R Int : 192 ms QRS Dur : 120 ms QT Int : 416 ms P-R-T Axes : 070 -62 069 degrees QTc Int : 452 ms Normal sinus rhythm Left anterior fascicular block Left ventricular hypertrophy with QRS widening and repolarization abnormality Possible Old Anteroseptal infarct (cited on or before 12-AUG-2019) Abnormal ECG When compared with ECG of 12-AUG-2019 13:02, No significant change Confirmed by Kenyon Major ([id number]) on 11/11/2022 4:48:25 PM Referred By: ED Confirmed By:Kenyon Major
[2022-11-11 17:06] LABS: Adenovirus F 40/41 PCR Not Detected (NotDetected); Astrovirus PCR Not Detected (NotDetected); Campylobacter PCR Not Detected (NotDetected); Cryptosporidium PCR Not Detected (NotDetected); Cyclospora cayetanensis PCR Not Detected (NotDetected); Entamoeba histolytica PCR Not Detected (NotDetected); Enteroaggregative E.coli(EAEC) Not Detected (NotDetected); Enteropathogenic E.coli (EPEC) Not Detected (NotDetected); Enterotoxigenic E.coli (ETEC) Not Detected (NotDetected); Giardia lamblia PCR Not Detected (NotDetected); Norovirus GI/GII PCR Not Detected (NotDetected); Plesiomonas shigelloides PCR Not Detected (NotDetected); Rotavirus A PCR Not Detected (NotDetected); Salmonella PCR Not Detected (NotDetected); Sapovirus PCR Not Detected (NotDetected); Shiga-like Toxin E.coli (STEC) Not Detected (NotDetected); Shigella/Enteroinvasive E.coli Not Detected (NotDetected); Vibrio cholerae PCR Not Detected (NotDetected); Vibrio species PCR Not Detected (NotDetected); Yersinia enterocolitica PCR Not Detected (NotDetected)
[2022-11-11] MEDS: AMPICILLIN/SULBACTAM SOD 3,000 MG in 0.9 % SODIUM CHLORIDE 100 ML IV SCH ×2 (17:58→21:31)
[2022-11-12] MEDS: AMPICILLIN/SULBACTAM SOD 3,000 MG in 0.9 % SODIUM CHLORIDE 100 ML IV SCH ×4 (04:01→21:10)
[2022-11-12 06:42] LABS: BUN Creatinine Ratio 13.3 (10-20); Calcium 7.5 mg/dl (8.6-10.3); Creatinine Clr Calc Pharmacy 50.2 ml/min; Est GFR (Non-African American) 63.9 ml/min; Potassium 3.5 mmol/L (3.5-5.1)
[2022-11-12 07:16] LABS: Hematocrit (blood only) 38.2 % (37.0-47.0); Hemoglobin 12.7 g/dl (12.0-16.0); Mean Corpuscular Hemoglobin 27.9 pg (25.0-34.0); Mean Corpuscular Hgb Conc 33.2 g/dL (32.0-36.0); Mean Corpuscular Volume 83.8 fL (80.0-100.0); Mean Platelet Volume 10.8 fL (9.4-12.4); Platelet Count 130 K/uL (130-400); RDW Coefficient of Variation 13.7 % (11.5-14.5); Red Blood Count 4.56 M/uL (4.20-5.40); White Blood Count 9.45 K/ul (4.8-10.8)
[2022-11-12] MEDS: SERTRALINE HCL 50 MG TABLET PO SCH (08:52)
--- NOTE | 2022-11-12 09:33 | Gastrointestinal Consultation ---
Date of Consultation November 12, 2022 Assessment & Plan (1) Bloody diarrhea: Her story and the CT scan seems most typical of an acute infectious colitis. She is a little old to be starting with IBD but I guess that is possible. The story does not suggest ischemia as the colitic pattern on CT is not typical and ischemia typically has pain with it. Diverticular bleeding is possible but her CT shows colitis not diverticulitis. It has been a long time since she has had a colonoscopy but she is 87 and I will not be doing it unless it is deemed necessary History of Present Illness Reason for Consultation: bloody diarrhea Attending Physician: Adria Wagner MD History of Present Illness 87 year old female who woke yesterday feeling nauseated. Went to the bathroom and had dry heaves with it. Did not inspect the stool then. Went several more times and when it was light she looked in the toilet and there was stool and blood in the water. This continued yesterday with persistent dry heaves and bloody stools until 11pm last night. She is feeling pretty well now but feels like she may have to go to the bathroom and is scared because she doesn't want to see what comes out. She denies any pain whatsoever with this. She went out to eat at "[employer]" the night before and had spaghetti with meatballs. She has never had anything like this before. Her bowel movements are good. She has no chronic pains. Her only medication is zoloft. She hasn't had a colonoscopy in [address] shows colitis more in the pattern of infection or IBD and not necessarily in the pattern of ischemia. Allergies Allergy/AdvReac Type Severity Reaction Status Date / Time cefoxitin [From Mefoxin] Allergy Mild Rash Verified 01/21/22 06:53 nickel Allergy Mild JEWELRY - Verified 01/21/22 06:53 MAKES EARS ITCH Home Medications Medication Instructions Recorded Confirmed Type ibuprofen 200 mg tablet (Advil) 200 mg PO Q6H PRN Pain 08/05/19 11/11/22 History sertraline 50 mg tablet (Zoloft) 50 mg PO DAILY 08/05/19 11/11/22 History amoxicillin 500 mg tablet 2,000 mg PO ONCE PRN prophylaxis 01/15/20 11/11/22 Rx #4 tabs ipratropium 20 mcg-albuterol 100 1 puff inhalation QID PRN 11/11/22 11/11/22 History mcg/actuation mist for inhalation Shortness Of Breath Or Wheezing (Combivent Respimat) Patient History Medical History Borderline hypertension BP can fluctuate but mostly controlled per patient COPD with asthma SEASONAL/EXERCISE ASTHMA LAST USED RESCUE INHALER YESTERDAY Breathing stable per patient Depression Glaucoma NO EYE DROPS Follows routinely with eye doctor Hiatal hernia History of kidney stones No recent issues Peripheral neuropathy Bilateral feet Splenic artery aneurysm QUESTIONABLE- PCP MONITORING Did see vascular in the past - did not feel area was aneurysmal per patient (last imaging 2018) Stress incontinence Surgical History History of cataract surgery RT/LEFT History of left hip replacement (~09/2019) History of tonsillectomy and adenoidectomy History of tooth extraction Hx of cholecystectomy Hx of colonoscopy Hx of dilation and curettage Hx of lithotripsy Family History Aunt Family history of diabetes mellitus Aunt Family history of diabetes mellitus Other No family history of adverse response to anesthesia Social History Smoking Status: Never smoker Second Hand Exposure: No; Do You Dip or Chew Tobacco: No; Tobacco Cessation Education Requested by Patient: No Hx Alcohol Use: No Hx Substance Use: No Preferred Language: Uzbek Communication Ability: Effective Meeting Manager Required: No Beliefs That Will Affect Care: None marital status: Current Living Situation: Family Current Living Situation Comment: with daughter Sona Other Information That Helps Us Care for You: No Feels Safe at Home: Yes Safety Concerns: Feels Safe At This Time Assistive Devices: Cane and Glasses Assistive Devices Comment: only uses cane for long distances Review of Systems Review of Systems: All systems reviewed & are unremarkable except as noted in HPI & below Physical Exam Constitutional: WD/WN, vitals as above no acute distress Eyes: PERRL, conjunctivae normal, anicteric sclerae ENMT: external ear and nose normal, oropharynx normal Neck: trachea midline, no thyromegaly Respiratory: normal respiratory effort, lungs clear to auscultation Cardiovascular: RRR, no murmur, no edema Gastrointestinal (Abdomen): normal bowel sounds, soft, nontender, no hepatosplenomegaly Musculoskeletal: Extremities: no cyanosis and no clubbing Skin: no rashes, warm and dry Neurologic: PERRL, EOMI, accommodation nl, no face palsy, no dysarthria Psychiatric: Orientation: alert and oriented x 3 Results & Data Vital Signs (Past 12 Hours) Vital Signs Temp Pulse Resp BP Pulse Ox O2 Del Method 11/12/22 07:19 37.7 C H 82 16 107/60 91 Room Air Laboratory Results 11/12/22 11/12/22 11/11/22 Range/Units 05:56 05:56 15:14 WBC 9.45 (4.8-10.8) K/ul RBC 4.56 (4.20-5.40) M/uL Hgb 12.7 D (12.0-16.0) g/dl POC Hgb (12.0-16.0) g/dl Hct 38.2 (37.0-47.0) % POC Hct (37-47) % MCV 83.8 (80.0-100.0) fL MCH 27.9 (25.0-34.0) pg MCHC 33.2 (32.0-36.0) g/dL RDW Std Deviation 42.0 (36.4-46.3) fL RDW Coeff of Cuauhtemoc 13.7 (11.5-14.5) % Plt Count 130 (130-400) K/uL MPV 10.8 (9.4-12.4) fL Immature Gran % (Auto) % Neut % (Auto) % Lymph % (Auto) % [place] % (Auto) % Eos % (Auto) % Baso % (Auto) % Neut # (Auto) (1.40-6.50) K/uL Lymph # (Auto) (1.2-3.4) K/uL [place] # (Auto) (0.11-0.59) K/uL Eos # (Auto) (0-0.50) K/uL Baso # (Auto) (0-0.2) K/uL Immature Gran # (Auto) (0.01-0.20) K/uL PT (9.0-12.0) Seconds INR (0.9-1.1) POC Sodium (135-144) mmol/L Sodium 142 (136-145) mmol/L POC Potassium (3.3-5.0) mmol/L Potassium 3.5 (3.5-5.1) mmol/L POC Chloride (101-112) mmol/L Chloride 113 H (98-107) mmol/L Carbon Dioxide 23 (21-32) mmol/L POC Total CO2 (24-31) mmol/L Anion Gap 6 (3-11) POC Anion Gap (16-25) mmol/L POC BUN (7-18) mg/dl BUN 11 (6-23) mg/dl Creatinine 0.83 (0.6-1.2) mg/dl POC Creatinine (0.6-1.3) mg/dl Est Cr Clr Drug Dosing 50.2 ml/min Est GFR ( Amer) 74.0 ml/min Est GFR (Non-Af Amer) 63.9 ml/min BUN/Creatinine Ratio 13.3 (10-20) Glucose 102 H (70-99(Fasting)) mg/dl POC Glucose (other) (70-99) mg/dl Calcium 7.5 L (8.6-10.3) mg/dl POC Ioniz Calcium Alfred (1.12-1.32) mmol/l Total Bilirubin (0.2-1.0) mg/dl AST (13-39) U/L ALT (7-52) U/L Alkaline Phosphatase (34-104) U/L Troponin I High Sens (0-14) pg/ml Total Protein (6.0-8.3) gm/dl Albumin (3.4-5.0) gm/dl Globulin (2.5-4.0) gm/dl Albumin/Globulin Ratio (0.9-2) Lipase (11-82) U/L Urine Color Urine Appearance (Clear) Urine pH (4.5-7.5) Ur Specific [place] (1.000-1.030) Urine Protein (Negative) Urine Glucose (UA) (Negative) Urine Ketones (Negative) Urine Blood (Negative) Urine Nitrite (Negative) Urine Bilirubin (Negative) Urine Urobilinogen (Negative) Ur Leukocyte Esterase (Negative) Stl C. cayetanensis PCR Not Detected (NotDetected) Stool Rotavirus A PCR Not Detected (NotDetected) Stl Adenov F 40/41 PCR Not Detected (NotDetected) Stool Astrovirus (PCR) Not Detected (NotDetected) Stool Campylobacter PCR Not Detected (NotDetected) Stl C. diff Tox B Gene (Neg) Stool Cryptosporidium PCR Not Detected (NotDetected) Stl E.coli Shiga Tox PCR Not Detected (NotDetected) Stl Enterotoxigenic E PCR Not Detected (NotDetected) Stool EPEC (PCR) Not Detected (NotDetected) Stool EAEC (PCR) Not Detected (NotDetected) Stl E. histolytica PCR Not Detected (NotDetected) Stool Giardia Lamblia PCR Not Detected (NotDetected) Stool Salmonella PCR Not Detected (NotDetected) Stool Sapovirus (PCR) Not Detected (NotDetected) Stl P. shigelloides PCR Not Detected (NotDetected) Stl Shigella/EIEC PCR Not Detected (NotDetected) St Y.enterocolitica PCR Not Detected (NotDetected) Stool Vibrio (PCR) Not Detected (NotDetected) Stl Vibrio cholerae PCR Not Detected (NotDetected) Stl Norovirus GI/GII PCR Not Detected (NotDetected) SARS-CoV-2, RNA, NAAT (NEGATIVE) Blood Type Antibody Screen 11/11/22 11/11/22 11/11/22 Range/Units 15:14 14:01 11:15 WBC (4.8-10.8) K/ul RBC (4.20-5.40) M/uL Hgb (12.0-16.0) g/dl POC Hgb 15.0 (12.0-16.0) g/dl Hct (37.0-47.0) % POC Hct 44 (37-47) % MCV (80.0-100.0) fL MCH (25.0-34.0) pg MCHC (32.0-36.0) g/dL RDW Std Deviation (36.4-46.3) fL RDW Coeff of Cuauhtemoc (11.5-14.5) % Plt Count (130-400) K/uL MPV (9.4-12.4) fL Immature Gran % (Auto) % Neut % (Auto) % Lymph % (Auto) % [place] % (Auto) % Eos % (Auto) % Baso % (Auto) % Neut # (Auto) (1.40-6.50) K/uL Lymph # (Auto) (1.2-3.4) K/uL [place] # (Auto) (0.11-0.59) K/uL Eos # (Auto) (0-0.50) K/uL Baso # (Auto) (0-0.2) K/uL Immature Gran # (Auto) (0.01-0.20) K/uL PT (9.0-12.0) Seconds INR (0.9-1.1) POC Sodium 141 (135-144) mmol/L Sodium (136-145) mmol/L POC Potassium 3.7 (3.3-5.0) mmol/L Potassium (3.5-5.1) mmol/L POC Chloride 106 (101-112) mmol/L Chloride (98-107) mmol/L Carbon Dioxide (21-32) mmol/L POC Total CO2 23 L (24-31) mmol/L Anion Gap (3-11) POC Anion Gap 17.0 (16-25) mmol/L POC BUN 18 (7-18) mg/dl BUN (6-23) mg/dl Creatinine (0.6-1.2) mg/dl POC Creatinine 0.9 (0.6-1.3) mg/dl Est Cr Clr Drug Dosing ml/min Est GFR ( Amer) ml/min Est GFR (Non-Af Amer) ml/min BUN/Creatinine Ratio (10-20) Glucose (70-99(Fasting)) mg/dl POC Glucose (other) 140 H (70-99) mg/dl Calcium (8.6-10.3) mg/dl POC Ioniz Calcium Alfred 1.04 L (1.12-1.32) mmol/l Total Bilirubin (0.2-1.0) mg/dl AST (13-39) U/L ALT (7-52) U/L Alkaline Phosphatase (34-104) U/L Troponin I High Sens (0-14) pg/ml Total Protein (6.0-8.3) gm/dl Albumin (3.4-5.0) gm/dl Globulin (2.5-4.0) gm/dl Albumin/Globulin Ratio (0.9-2) Lipase (11-82) U/L Urine Color Yellow Urine Appearance Clear (Clear) Urine pH 5.5 (4.5-7.5) Ur Specific [place] > 1.045 H (1.000-1.030) Urine Protein Negative (Negative) Urine Glucose (UA) Negative (Negative) Urine Ketones Negative (Negative) Urine Blood Negative (Negative) Urine Nitrite Negative (Negative) Urine Bilirubin Negative (Negative) Urine Urobilinogen Negative (Negative) Ur Leukocyte Esterase Negative (Negative) Stl C. cayetanensis PCR (NotDetected) Stool Rotavirus A PCR (NotDetected) Stl Adenov F 40/41 PCR (NotDetected) Stool Astrovirus (PCR) (NotDetected) Stool Campylobacter PCR (NotDetected) Stl C. diff Tox B Gene Negative Cdiff Gene (Neg) Stool Cryptosporidium PCR (NotDetected) Stl E.coli Shiga Tox PCR (NotDetected) Stl Enterotoxigenic E PCR (NotDetected) Stool EPEC (PCR) (NotDetected) Stool EAEC (PCR) (NotDetected) Stl E. histolytica PCR (NotDetected) Stool Giardia Lamblia PCR (NotDetected) Stool Salmonella PCR (NotDetected) Stool Sapovirus (PCR) (NotDetected) Stl P. shigelloides PCR (NotDetected) Stl Shigella/EIEC PCR (NotDetected) St Y.enterocolitica PCR (NotDetected) Stool Vibrio (PCR) (NotDetected) Stl Vibrio cholerae PCR (NotDetected) Stl Norovirus GI/GII PCR (NotDetected) SARS-CoV-2, RNA, NAAT (NEGATIVE) Blood Type Antibody Screen 11/11/22 11/11/22 11/11/22 Range/Units 11:15 11:09 11:09 WBC (4.8-10.8) K/ul RBC (4.20-5.40) M/uL Hgb (12.0-16.0) g/dl POC Hgb (12.0-16.0) g/dl Hct (37.0-47.0) % POC Hct (37-47) % MCV (80.0-100.0) fL MCH (25.0-34.0) pg MCHC (32.0-36.0) g/dL RDW Std Deviation (36.4-46.3) fL RDW Coeff of Cuauhtemoc (11.5-14.5) % Plt Count (130-400) K/uL MPV (9.4-12.4) fL Immature Gran % (Auto) % Neut % (Auto) % Lymph % (Auto) % [place] % (Auto) % Eos % (Auto) % Baso % (Auto) % Neut # (Auto) (1.40-6.50) K/uL Lymph # (Auto) (1.2-3.4) K/uL [place] # (Auto) (0.11-0.59) K/uL Eos # (Auto) (0-0.50) K/uL Baso # (Auto) (0-0.2) K/uL Immature Gran # (Auto) (0.01-0.20) K/uL PT (9.0-12.0) Seconds INR (0.9-1.1) POC Sodium (135-144) mmol/L Sodium 140 (136-145) mmol/L POC Potassium (3.3-5.0) mmol/L Potassium 3.9 (3.5-5.1) mmol/L POC Chloride (101-112) mmol/L Chloride 107 (98-107) mmol/L Carbon Dioxide 25 (21-32) mmol/L POC Total CO2 (24-31) mmol/L Anion Gap 8 (3-11) POC Anion Gap (16-25) mmol/L POC BUN (7-18) mg/dl BUN 20 (6-23) mg/dl Creatinine 0.84 (0.6-1.2) mg/dl POC Creatinine (0.6-1.3) mg/dl Est Cr Clr Drug Dosing 49.3 ml/min Est GFR ( Amer) 72.9 ml/min Est GFR (Non-Af Amer) 62.9 ml/min BUN/Creatinine Ratio 23.8 H (10-20) Glucose 139 H (70-99(Fasting)) mg/dl POC Glucose (other) (70-99) mg/dl Calcium 9.3 (8.6-10.3) mg/dl POC Ioniz Calcium Alfred (1.12-1.32) mmol/l Total Bilirubin 0.6 (0.2-1.0) mg/dl AST 14 (13-39) U/L ALT 11 (7-52) U/L Alkaline Phosphatase 88 (34-104) U/L Troponin I High Sens 5.7 (0-14) pg/ml Total Protein 6.9 (6.0-8.3) gm/dl Albumin 3.9 (3.4-5.0) gm/dl Globulin 3.0 (2.5-4.0) gm/dl Albumin/Globulin Ratio 1.3 (0.9-2) Lipase 74 (11-82) U/L Urine Color Urine Appearance (Clear) Urine pH (4.5-7.5) Ur Specific [place] (1.000-1.030) Urine Protein (Negative) Urine Glucose (UA) (Negative) Urine Ketones (Negative) Urine Blood (Negative) Urine Nitrite (Negative) Urine Bilirubin (Negative) Urine Urobilinogen (Negative) Ur Leukocyte Esterase (Negative) Stl C. cayetanensis PCR (NotDetected) Stool Rotavirus A PCR (NotDetected) Stl Adenov F 40/41 PCR (NotDetected) Stool Astrovirus (PCR) (NotDetected) Stool Campylobacter PCR (NotDetected) Stl C. diff Tox B Gene (Neg) Stool Cryptosporidium PCR (NotDetected) Stl E.coli Shiga Tox PCR (NotDetected) Stl Enterotoxigenic E PCR (NotDetected) Stool EPEC (PCR) (NotDetected) Stool EAEC (PCR) (NotDetected) Stl E. histolytica PCR (NotDetected) Stool Giardia Lamblia PCR (NotDetected) Stool Salmonella PCR (NotDetected) Stool Sapovirus (PCR) (NotDetected) Stl P. shigelloides PCR (NotDetected) Stl Shigella/EIEC PCR (NotDetected) St Y.enterocolitica PCR (NotDetected) Stool Vibrio (PCR) (NotDetected) Stl Vibrio cholerae PCR (NotDetected) Stl Norovirus GI/GII PCR (NotDetected) SARS-CoV-2, RNA, NAAT NEGATIVE (NEGATIVE) Blood Type B Positive Antibody Screen NEGATIVE 11/11/22 11/11/22 Range/Units 11:09 11:09 WBC 10.28 (4.8-10.8) K/ul RBC 5.74 H (4.20-5.40) M/uL Hgb 16.1 H (12.0-16.0) g/dl POC Hgb (12.0-16.0) g/dl Hct 47.4 H (37.0-47.0) % POC Hct (37-47) % MCV 82.6 (80.0-100.0) fL MCH 28.0 (25.0-34.0) pg MCHC 34.0 (32.0-36.0) g/dL RDW Std Deviation 40.8 (36.4-46.3) fL RDW Coeff of Cuauhtemoc 13.6 (11.5-14.5) % Plt Count 169 (130-400) K/uL MPV 10.8 (9.4-12.4) fL Immature Gran % (Auto) 0.5 % Neut % (Auto) 87.2 % Lymph % (Auto) 7.2 % [place] % (Auto) 4.3 % Eos % (Auto) 0.4 % Baso % (Auto) 0.4 % Neut # (Auto) 8.97 H (1.40-6.50) K/uL Lymph # (Auto) 0.74 L (1.2-3.4) K/uL [place] # (Auto) 0.44 (0.11-0.59) K/uL Eos # (Auto) 0.04 (0-0.50) K/uL Baso # (Auto) 0.04 (0-0.2) K/uL Immature Gran # (Auto) 0.05 (0.01-0.20) K/uL PT 11.0 (9.0-12.0) Seconds INR 1.0 (0.9-1.1) POC Sodium (135-144) mmol/L Sodium (136-145) mmol/L POC Potassium (3.3-5.0) mmol/L Potassium (3.5-5.1) mmol/L POC Chloride (101-112) mmol/L Chloride (98-107) mmol/L Carbon Dioxide (21-32) mmol/L POC Total CO2 (24-31) mmol/L Anion Gap (3-11) POC Anion Gap (16-25) mmol/L POC BUN (7-18) mg/dl BUN (6-23) mg/dl Creatinine (0.6-1.2) mg/dl POC Creatinine (0.6-1.3) mg/dl Est Cr Clr Drug Dosing ml/min Est GFR ( Amer) ml/min Est GFR (Non-Af Amer) ml/min BUN/Creatinine Ratio (10-20) Glucose (70-99(Fasting)) mg/dl POC Glucose (other) (70-99) mg/dl Calcium (8.6-10.3) mg/dl POC Ioniz Calcium Alfred (1.12-1.32) mmol/l Total Bilirubin (0.2-1.0) mg/dl AST (13-39) U/L ALT (7-52) U/L Alkaline Phosphatase (34-104) U/L Troponin I High Sens (0-14) pg/ml Total Protein (6.0-8.3) gm/dl Albumin (3.4-5.0) gm/dl Globulin (2.5-4.0) gm/dl Albumin/Globulin Ratio (0.9-2) Lipase (11-82) U/L Urine Color Urine Appearance (Clear) Urine pH (4.5-7.5) Ur Specific [place] (1.000-1.030) Urine Protein (Negative) Urine Glucose (UA) (Negative) Urine Ketones (Negative) Urine Blood (Negative) Urine Nitrite (Negative) Urine Bilirubin (Negative) Urine Urobilinogen (Negative) Ur Leukocyte Esterase (Negative) Stl C. cayetanensis PCR (NotDetected) Stool Rotavirus A PCR (NotDetected) Stl Adenov F 40/41 PCR (NotDetected) Stool Astrovirus (PCR) (NotDetected) Stool Campylobacter PCR (NotDetected) Stl C. diff Tox B Gene (Neg) Stool Cryptosporidium PCR (NotDetected) Stl E.coli Shiga Tox PCR (NotDetected) Stl Enterotoxigenic E PCR (NotDetected) Stool EPEC (PCR) (NotDetected) Stool EAEC (PCR) (NotDetected) Stl E. histolytica PCR (NotDetected) Stool Giardia Lamblia PCR (NotDetected) Stool Salmonella PCR (NotDetected) Stool Sapovirus (PCR) (NotDetected) Stl P. shigelloides PCR (NotDetected) Stl Shigella/EIEC PCR (NotDetected) St Y.enterocolitica PCR (NotDetected) Stool Vibrio (PCR) (NotDetected) Stl Vibrio cholerae PCR (NotDetected) Stl Norovirus GI/GII PCR (NotDetected) SARS-CoV-2, RNA, NAAT (NEGATIVE) Blood Type Antibody Screen Diagnostic Findings Abdomen/Pelvis CTA 11/11/22 11:02 CT angio abdomen pelvis w con CT DOSE: 300.68 mGy.cm CLINICAL HISTORY: lower abd pain, bloody diarrhea TECHNIQUE: Multiaxial CT images of the abdomen and pelvis were performed following the intravenous administration of 114 cc of Optiray 320 to evaluate the major arterial structures. Maximal intensity projection images were also obtained. A dose lowering technique was utilized adhering to the principles of ALARA. COMPARISON STUDY: None. FINDINGS: Linear densities at the lung bases consistent with subsegmental atelectasis. No pneumoperitoneum. No pneumatosis. There is a left total hip arthroplasty. No acute fractures identified. There is a large hiatus hernia containing the majority stomach and mid transverse colon. Cholecystectomy. The liver, spleen, adrenal glands, and pancreas unremarkable. Bilateral cortical renal thinning is noted. There are small left peripelvic renal cysts. No ureteral stones. No hydronephrosis. No retroperitoneal lymphadenopathy. No pelvic lymphadenopathy. The bladder is decompressed and not well evaluated. Possible thickening of the endometrium measuring up to 1.5 cm. This is partially obscured by the metallic artifact from the left hip prosthesis. A few colonic diverticula. No dilated loops of bowel to suggest an obstruction. Mild circumferential thickening throughout the majority of the colon most pronounced within the descending colon with mild pericolonic fat stranding. Findings are consistent with a nonspecific colitis. This favors an infectious or inflammatory process. Ischemic colitis is considered less likely but not entirely excluded. Normal appendix. Moderate calcified plaque within the normal caliber abdominal aorta and iliac arteries. No significant stenosis or occlusion within the celiac, superior mesenteric, inferior mesenteric, or renal arteries. There is a partially ca lcified 1.8 cm splenic artery aneurysm on image 63. IMPRESSION: 1. Mild circumferential thickening throughout the majority of the colon most pronounced within the descending colon with mild pericolonic fat stranding. Findings are consistent with a nonspecific colitis. This favors an infectious or inflammatory process. Ischemic colitis is considered less likely but not entirely excluded. 2. A large hiatus hernia containing the majority the stomach and mid transverse colon. 3. Possible thickening of the endometrium measures up to 1.5 cm. Follow-up nonemergent pelvic ultrasound recommended for further evaluation. 4. A partially calcified 1.8 cm splenic artery aneurysm. ACT 112: Negative or not required by law. Electronically signed by: Alexys Monroe M.D. 11/11/2022 12:18 PM
--- NOTE | 2022-11-12 15:03 | Hospitalist Progress Note ---
Date of Service November 12, 2022 Assessment & Plan (1) Colitis: Plan: per previous hospitalist notes with addendum: (2) Bloody diarrhea: Plan: Patient is 87 y/o F with PMH COPD, borderline HTN, depression, h/o splenic artery aneurysm presented to ER with c/o dry heaves and bloody diarrhea today. Denies fevers, vomiting In ER afebrile, vital stable. No leukocytosis. H/H: CT abdomen pelvis: Mild circumferential thickening throughout the majority of the colon most pronounced within the descending colon with mild pericolonic fat stranding. Findings are consistent with a nonspecific colitis. This favors an infectious or inflammatory process. Ischemic colitis is considered less likely but not entirely excluded. A large hiatus hernia containing the majority the stomach and mid transverse colon. In ER given 1L NSS, Zofran, Protonix IV Stool cultures, C. difficile pending Gentle IVF Clear liquid diet for now Unasyn CBC, BMP in a.m. 11/12 CT abd/pelv: IMPRESSION: 1. Mild circumferential thickening throughout the majority of the colon most pronounced within the descending colon with mild pericolonic fat stranding. Findings are consistent with a nonspecific colitis. This favors an infectious or inflammatory process. Ischemic colitis is considered less likely but not entirely excluded. 2. A large hiatus hernia containing the majority the stomach and mid transverse colon. 3. Possible thickening of the endometrium measures up to 1.5 cm. Follow-up nonemergent pelvic ultrasound recommended for further evaluation. 4. A partially calcified 1.8 cm splenic artery aneurysm. Stool PCR: negative Hg 15 -- > 12 repeat this afternoon likely infectious, vs diverticular bleed continue IV Unasyn clear liquids monitor (3) Dysuria: Plan: Patient reports dysuria for couple of days UA pending 11/12 UA negative (4) Abnormal computed tomography of abdomen and pelvis: Plan: CT abdomen pelvis: Possible thickening of the endometrium measures up to 1.5 cm. Patient will need further outpatient follow-up with ultrasound pelvis, gynecology Discussed further work-up with patient who wishes to defer at this time and follow-up outpatient (5) COPD with asthma: Plan: No signs exacerbation Continue Combivent as needed (6) Depression: Plan: Continue sertraline (7) Borderline hypertension: Plan: History of borderline hypertension. Not on medication BP improved DVT Prophylaxis SCDs Full Code as per discussion with pt Follows with Dr Sandoval for routine care plan of care discussed with patient in detail and at length all questions answered she is understanding, agreeable, comfortable with the plan of care Admission and Anticipated Discharge Date Admission Date: November 11, 2022 Subjective ff up for blood diarrhea, etc seen resting in bed, comfortable in good spirits states she feels ok overall last BM was 11pm no abdominal pain, nausea/vomiting, fever/chills no chest pain, dyspnea, palpitations, dizziness no other symptoms Review of Systems Review of Systems: all noted and negative except for above Physical Exam Physical Exam: General- oriented x 3, not in distress, speaks in sentences with no effort or ac cessory muscle use Eyes- anicteric Neck- no JVD Lungs- clear breath sounds bilaterally, no crackles/wheezing Heart- normal rate, regular rhythm; no murmurs Abdomen- normal bowel sounds, nondistended, soft, no tenderness Extremities- no pretibial edema, no calf tenderness Neuro- alert, oriented x 3; no gross focal neurologic deficits Skin- warm & dry Results & Data Results & Data Vital Signs (Past 12 Hours) Vital Signs Temp Pulse Resp BP Pulse Ox O2 Del Method 11/12/22 07:19 37.7 C H 82 16 107/60 91 Room Air all noted and reviewed including below
[2022-11-13] MEDS: AMPICILLIN/SULBACTAM SOD 3,000 MG in 0.9 % SODIUM CHLORIDE 100 ML IV SCH ×4 (04:54→21:45)
[2022-11-13] MEDS: SERTRALINE HCL 50 MG TABLET PO SCH (08:37)
--- NOTE | 2022-11-13 09:16 | Gastroenterology Progress Note ---
Date of Service November 13, 2022 Assessment & Plan (1) Bloody diarrhea: Plan: Seems to be clearing out blood now. No real symptoms. Would advance diet when she is ready and home after that. Admission and Anticipated Discharge Date Admission Date: November 11, 2022 Subjective States she feels better. Still passing blood but no longer bright red, more "dull and dark". Had three BM's yesterday. Mild cramping but not much other pain. Scared to advance diet Physical Exam Physical Exam: She looks well Results & Data Vital Signs (Past 12 Hours) Vital Signs Temp Pulse Resp BP Pulse Ox O2 Del Method 11/13/22 07:27 36.6 C 90 16 139/77 92 Room Air
[2022-11-13 09:31] LABS: Basophils # (auto) 0.03 K/uL (0-0.2); Basophils % (auto) 0.4 %; Eosinophils # (auto) 0.22 K/uL (0-0.50); Eosinophils % (auto) 2.6 %; Hematocrit (blood only) 40.6 % (37.0-47.0); Hemoglobin 13.2 g/dl (12.0-16.0); Immature Granulocytes # (auto) 0.06 K/uL (0.01-0.20); Immature Granulocytes % (auto) 0.7 %; Lymphocytes # (auto) 0.84 K/uL (1.2-3.4); Lymphocytes % (auto) 9.9 %; Mean Corpuscular Hemoglobin 27.4 pg (25.0-34.0); Mean Corpuscular Hgb Conc 32.5 g/dL (32.0-36.0); Mean Corpuscular Volume 84.2 fL (80.0-100.0); Mean Platelet Volume 10.6 fL (9.4-12.4); Monocytes % (auto) 5.9 %; Neutrophils # (auto) 6.84 K/uL (1.40-6.50); Neutrophils % (auto) 80.5 %; Platelet Count 129 K/uL (130-400); RDW Coefficient of Variation 13.6 % (11.5-14.5); RDW Standard Deviation 41.7 fL (36.4-46.3); Red Blood Count 4.82 M/uL (4.20-5.40); White Blood Count 8.49 K/ul (4.8-10.8)
[2022-11-13 09:49] LABS: BUN Creatinine Ratio 8.2 (10-20); Calcium 7.9 mg/dl (8.6-10.3); Creatinine Clr Calc Pharmacy 49.1 ml/min; Est GFR (African American) 71.9 ml/min; Magnesium 1.8 mg/dl (1.7-2.4); Phosphorus 2.3 mg/dl (2.5-4.9); Potassium 3.2 mmol/L (3.5-5.1)
[2022-11-13] MEDS ORDERED: POTASSIUM CHLORIDE CRTAB 20 MEQ TABCR PO STA (11:03)
[2022-11-13] MEDS ORDERED: POTASSIUM CHLORIDE 20 MEQ/15 ML UDC PO STA (11:26)
[2022-11-13] MEDS: POT PHOSPHATE MONOBASIC W/ SOD TAB PO SCH ×3 (12:18→20:59)
[2022-11-13] MEDS: D5NSS + 20MEQ KCL 20 MEQ/1,000 ML BAG IV SCH (12:20)
--- NOTE | 2022-11-13 14:53 | Hospitalist Progress Note ---
Date of Service November 13, 2022 Assessment & Plan (1) Colitis: Plan: per previous hospitalist notes with addendum: (2) Bloody diarrhea: Plan: Patient is 87 y/o F with PMH COPD, borderline HTN, depression, h/o splenic artery aneurysm presented to ER with c/o dry heaves and bloody diarrhea today. Denies fevers, vomiting In ER afebrile, vital stable. No leukocytosis. H/H: CT abdomen pelvis: Mild circumferential thickening throughout the majority of the colon most pronounced within the descending colon with mild pericolonic fat stranding. Findings are consistent with a nonspecific colitis. This favors an infectious or inflammatory process. Ischemic colitis is considered less likely but not entirely excluded. A large hiatus hernia containing the majority the stomach and mid transverse colon. In ER given 1L NSS, Zofran, Protonix IV Stool cultures, C. difficile pending Gentle IVF Clear liquid diet for now Unasyn CBC, BMP in a.m. 11/12 CT abd/pelv: IMPRESSION: 1. Mild circumferential thickening throughout the majority of the colon most pronounced within the descending colon with mild pericolonic fat stranding. Findings are consistent with a nonspecific colitis. This favors an infectious or inflammatory process. Ischemic colitis is considered less likely but not entirely excluded. 2. A large hiatus hernia containing the majority the stomach and mid transverse colon. 3. Possible thickening of the endometrium measures up to 1.5 cm. Follow-up nonemergent pelvic ultrasound recommended for further evaluation. 4. A partially calcified 1.8 cm splenic artery aneurysm. Stool PCR: negative Hg 15 -- > 12 repeat this afternoon likely infectious, vs diverticular bleed continue IV Unasyn clear liquids monitor 11/13 Colitis, possible ischemic, infectious, inflammatory Still having some diarrhea today Continue IV antibiotics, IV fluids Replace phosphorus and potassium On clear liquids Advance as tolerated Monitor closely (3) Dysuria: Plan: Patient reports dysuria for couple of days 11/13 UA negative (4) Abnormal computed tomography of abdomen and pelvis: Plan: CT abdomen pelvis: Possible thickening of the endometrium measures up to 1.5 cm. Patient will need further outpatient follow-up with ultrasound pelvis, gynecology Discussed further work-up with patient who wishes to defer at this time and follow-up outpatient (5) COPD with asthma: Plan: No signs exacerbation Continue Combivent as needed (6) Depression: Plan: Continue sertraline (7) Borderline hypertension: Plan: History of borderline hypertension. Not on medication BP improved DVT Prophylaxis SCDs Full Code as per discussion with pt Follows with Dr Sandoval for routine care plan of care discussed with patient in detail and at length all questions answered she is understanding, agreeable, comfortable with the plan of care Admission and Anticipated Discharge Date Admission Date: November 13, 2022 Subjective Follow-up for colitis, etc. Seen resting in bed, comfortable, not in distress States she is having lower abdominal cramps today, with 3 episodes of diarrhea, still with some blood but not as heavy associated with some nausea No fevers or chills No headache, dizziness,, chest pain, shortness of breath No other symptoms Review of Systems Review of Systems: all noted and negative except for above Physical Exam Physical Exam: General- oriented x 3, not in distress, speaks in sentences with no effort or accessory muscle use Eyes- anicteric Neck- no JVD Lungs- clear breath sounds bilaterally, no crackles Heart- normal rate, regular rhythm; no murmurs Abdomen- normal bowel sounds, nondistended, soft, nontender Extremities- no pretibial edema, no calf tenderness Neuro- alert, oriented x 3; no gross focal neurologic deficits Skin- warm & dry Results & Data Results & Data Vital Signs (Past 12 Hours) Vital Signs Temp Pulse Resp BP Pulse Ox O2 Del Method 11/13/22 07:27 36.6 C 90 16 139/77 92 Room Air all noted and reviewed including below
[2022-11-14] MEDS: D5NSS + 20MEQ KCL 20 MEQ/1,000 ML BAG IV SCH ×2 (02:51→16:32)
[2022-11-14] MEDS: AMPICILLIN/SULBACTAM SOD 3,000 MG in 0.9 % SODIUM CHLORIDE 100 ML IV SCH ×2 (04:11→10:09)
[2022-11-14] MEDS: SERTRALINE HCL 50 MG TABLET PO SCH (08:03)
[2022-11-14] MEDS: POT PHOSPHATE MONOBASIC W/ SOD TAB PO SCH ×4 (08:03→20:20)
--- NOTE | 2022-11-14 10:10 | Gastroenterology Progress Note ---
Date of Service November 14, 2022 Assessment & Plan (1) Colitis: Plan: Her presentation is most typical of infectious versus less likely ischemic colitis. Also possible is a diverticular bleed. She seems to be recovering well nicely with blood in her bowel movements today. She is tolerating regular diet (2) Bloody diarrhea: Plan Patient was seen with her daughter Davina and the room as well. The patient does not want colonoscopy as an inpatient is does not believe that she wants to undergo one as an outpatient. She did undergo colonoscopy approximately 30 years ago. She is a medication minimalist and avoids any processed foods, eating very healthy. She states that she needs some time to think about whether she would be willing to undergo an outpatient colonoscopy. I recommend that she consider, as this would help rule out other abnormalities such as chronic ischemic colitis or colon cancer though these or not likely with this presentation. Would defer to the patient and her PCP to decide. I assured her that we will be happy to provide a colonoscopy as an outpatient if she decides to undergo. I have messaged her PCP Dr. Perez with patient's preferences and encouraged her to contact us if she is able to persuade the patient to undergo colonoscopy. GI will sign off. No GI contraindication to discharge today. Admission and Anticipated Discharge Date Admission Date: November 13, 2022 Supervising Physician Co-Signing Physician Notes Agree with PE as documented GI consulted for rectal bleeding with crampy abdominal pain that appears to be slowing down with stable hemodynamics and no drop in her hgb. Imaging c/w colitis currently on abx. She did not have any symptoms to correlate with possible ischemic colitis and has minimal abdominal pain reported and her abd exam is soft non tender. Would complete abx course, outpatient colonoscopy can be consider however she is 87 and is aware of the slight increased risk of colonoscopy at her age. Agree with further plan of care as documented. Subjective 87-year-old female admitted on 11/12 for rectal bleeding. This did come on suddenly on Monday morning, at that time passed a loose bowel movement and had dry heaving. Followed by several bowel movements with blood. Bleeding seems to have slowed down. Most recent bowel movement this morning was brown and small, loose. Hemoglobin remained stable at 13.2. BUN has been normal. CT on arrival with clements colitis, worse in the descending colon. She reports having had mild abdominal discomfort but no significant pain. Review of Systems Review of Systems: ROS: Gen: Denies weakness, fevers, weight loss Eyes: No eye redness, or pain, no recent vision changes Resp: No SOB, no cough Cardio: No palpitations/irregular beats, no chest pain GI: No abdominal pain, no nausea/vomiting : Denies pain on urination Skin: No jaundice, itching or new rashes Physical Exam Constitutional: WD/WN, vitals as above Eyes: PERRL, conjunctivae normal, anicteric sclerae ENMT: external ear and nose normal, oropharynx normal Neck: trachea midline, no thyromegaly Respiratory: normal respiratory effort, lungs clear to auscultation Cardiovascular: RRR, no murmur, no edema Gastrointestinal (Abdomen): normal bowel sounds, soft, nontender, no hep atosplenomegaly Skin: no rashes, warm and dry Neurologic: patellar DTR's 2+ bilat, sensation intact Psychiatric: A+Ox3, euthymic affect Lymphatic: no cervical or axillary lymphadenopathy Results & Data Vital Signs (Past 12 Hours) Vital Signs Temp Pulse Resp BP Pulse Ox O2 Del Method 11/14/22 07:17 36.7 C 82 16 129/76 92 Room Air Laboratory Results WBC 8.4, Hb 13.2, HCT 40.6, PLT S129, NA 145, K3.2, CL 113, CO2 24, BUN 7, CR 0.8, glucose 155. Diagnostic Findings CTAP w IV on 11/11/22: 1. Mild circumferential thickening throughout the majority of the colon most pronounced within the descending colon with mild pericolonic fat stranding. Findings are consistent with a nonspecific colitis. This favors an infectious or inflammatory process. Ischemic colitis is considered less likely but not entirely excluded. 2. A large hiatus hernia containing the majority the stomach and mid transverse colon. 3. Possible thickening of the endometrium measures up to 1.5 cm. Follow-up nonemergent pelvic ultrasound recommended for further evaluation. 4. A partially calcified 1.8 cm splenic artery aneurysm.
[2022-11-14 11:29] LABS: Basophils # (auto) 0.04 K/uL (0-0.2); Basophils % (auto) 0.6 %; Eosinophils # (auto) 0.27 K/uL (0-0.50); Eosinophils % (auto) 3.8 %; Hematocrit (blood only) 39.6 % (37.0-47.0); Hemoglobin 12.8 g/dl (12.0-16.0); Immature Granulocytes # (auto) 0.04 K/uL (0.01-0.20); Immature Granulocytes % (auto) 0.6 %; Lymphocytes % (auto) 9.9 %; Mean Corpuscular Hemoglobin 27.5 pg (25.0-34.0); Mean Corpuscular Hgb Conc 32.3 g/dL (32.0-36.0); Mean Corpuscular Volume 85.2 fL (80.0-100.0); Monocytes # (auto) 0.46 K/uL (0.11-0.59); Monocytes % (auto) 6.5 %; Neutrophils # (auto) 5.53 K/uL (1.40-6.50); Neutrophils % (auto) 78.6 %; Platelet Count 128 K/uL (130-400); RDW Coefficient of Variation 13.7 % (11.5-14.5); RDW Standard Deviation 42.6 fL (36.4-46.3); Red Blood Count 4.65 M/uL (4.20-5.40); White Blood Count 7.04 K/ul (4.8-10.8)
[2022-11-14 11:56] LABS: BUN Creatinine Ratio 5.6 (10-20); Calcium 8.3 mg/dl (8.6-10.3); Creatinine Clr Calc Pharmacy 46.3 ml/min; Est GFR (African American) 67.1 ml/min; Est GFR (Non-African American) 57.9 ml/min; Potassium 4.4 mmol/L (3.5-5.1)
[2022-11-14] MEDS: AMOXICILLIN/CLAVULANATE 875 MG TAB PO SCH (16:33)
--- NOTE | 2022-11-14 18:07 | Hospitalist Progress Note ---
Date of Service November 14, 2022 Assessment & Plan (1) Colitis: (2) Bloody diarrhea: (3) Dysuria: (4) Abnormal computed tomography of abdomen and pelvis: (5) COPD with asthma: (6) Depression: (7) Borderline hypertension: Plan: (1) Colitis: Plan: per previous hospitalist notes with addendum: (2) Bloody diarrhea: Plan: Patient is 87 y/o F with PMH COPD, borderline HTN, depression, h/o splenic artery aneurysm presented to ER with c/o dry heaves and bloody diarrhea today. Denies fevers, vomiting In ER afebrile, vital stable. No leukocytosis. H/H: CT abdomen pelvis: Mild circumferential thickening throughout the majority of the colon most pronounced within the descending colon with mild pericolonic fat stranding. Findings are consistent with a nonspecific colitis. This favors an infectious or inflammatory process. Ischemic colitis is considered less likely but not entirely excluded. A large hiatus hernia containing the majority the stomach and mid transverse colon. In ER given 1L NSS, Zofran, Protonix IV Stool cultures, C. difficile pending Gentle IVF Clear liquid diet for now Unasyn CBC, BMP in a.m. 11/12 CT abd/pelv: IMPRESSION: 1. Mild circumferential thickening throughout the majority of the colon most pronounced within the descending colon with mild pericolonic fat stranding. Findings are consistent with a nonspecific colitis. This favors an infectious or inflammatory process. Ischemic colitis is considered less likely but not entirely excluded. 2. A large hiatus hernia containing the majority the stomach and mid transverse colon. 3. Possible thickening of the endometrium measures up to 1.5 cm. Follow-up nonemergent pelvic ultrasound recommended for further evaluation. 4. A partially calcified 1.8 cm splenic artery aneurysm. Stool PCR: negative Hg 15 -- > 12 repeat this afternoon likely infectious, vs diverticular bleed continue IV Unasyn clear liquids monitor 11/13 Colitis, possible ischemic, infectious, inflammatory Still having some diarrhea today Continue IV antibiotics, IV fluids Replace phosphorus and potassium On clear liquids Advance as tolerated Monitor closely 11/14 Symptoms seems to be improving overall Hemoglobin stable Transition to p.o. antibiotics Diet advanced slowly, tolerating so far Monitor closely (3) Dysuria: Plan: Patient reports dysuria for couple of days 11/13 UA negative (4) Abnormal computed tomography of abdomen and pelvis: Plan: CT abdomen pelvis: Possible thickening of the endometrium measures up to 1.5 cm. Patient will need further outpatient follow-up with ultrasound pelvis, gynecology Discussed further work-up with patient who wishes to defer at this time and follow-up outpatient (5) COPD with asthma: Plan: No signs exacerbation Continue Combivent as needed (6) Depression: Plan: Continue sertraline (7) Borderline hypertension: Plan: History of borderline hypertension. Not on medication BP improved DVT Prophylaxis SCDs Disposition Anticipate discharge to home in 1 to 2 days when medically stable Full Code as per discussion with pt Follows with Dr Sandoval for routine care plan of care discussed with patient in detail and at length all questions answered she is understanding, agreeable, comfortable with the plan of care Admission and Anticipated Discharge Date Admission Date: November 13, 2022 Subjective Follow-up for colitis, bloody diarrhea, etc. Seen resting in bed, sitting up, in good spirits States she feels somewhat better today Had 3 BMs today, now formed, still having some blood Still having some lower abdominal discomfort but seems to be improving overall No fevers or chills No other symptom Review of Systems Review of Systems: all noted and negative except for above Physical Exam Physical Exam: General- oriented x 3, not in distress, speaks in sentences with no effort or accessory muscle use Eyes- anicteric Neck- no JVD Lungs- clear breath sounds bilaterally, no crackles, no wheezing Heart- normal rate, regular rhythm; no murmurs Abdomen- normal bowel sounds, nondistended, soft, nontender Extremities- no pretibial edema, no calf tenderness Neuro- alert, oriented x 3; no gross focal neurologic deficits Skin- warm & dry Results & Data Results & Data Vital Signs (Past 12 Hours) Vital Signs Temp Pulse Resp BP Pulse Ox O2 Del Method 11/14/22 15:03 36.6 C 65 16 137/73 94 Room Air 11/14/22 07:17 36.7 C 82 16 129/76 92 Room Air all noted and reviewed including below
[2022-11-14] MEDS ORDERED: AMOXICILLIN/CLAVULANATE 875 MG TAB PO SCH (21:00)
[2022-11-15] MEDS: D5NSS + 20MEQ KCL 20 MEQ/1,000 ML BAG IV SCH (05:21)
[2022-11-15] MEDS: AMOXICILLIN/CLAVULANATE 875 MG TAB PO SCH ×2 (08:27→17:24)
[2022-11-15] MEDS: POT PHOSPHATE MONOBASIC W/ SOD TAB PO SCH ×4 (08:27→20:08)
[2022-11-15] MEDS: SERTRALINE HCL 50 MG TABLET PO SCH (08:27)
[2022-11-15] MEDS ORDERED: SODIUM CHLORIDE 0.9% 1000ML 1,000 ML IV SCH (09:00)
--- NOTE | 2022-11-15 16:34 | Hospitalist Progress Note ---
Date of Service November 15, 2022 Assessment & Plan (1) Colitis: (2) Bloody diarrhea: (3) Dysuria: (4) Abnormal computed tomography of abdomen and pelvis: (5) COPD with asthma: (6) Depression: (7) Borderline hypertension: Plan: (1) Colitis: Plan: per previous hospitalist notes with addendum: (2) Bloody diarrhea: Plan: Patient is 87 y/o F with PMH COPD, borderline HTN, depression, h/o splenic artery aneurysm presented to ER with c/o dry heaves and bloody diarrhea today. Denies fevers, vomiting CT abd/pelv: IMPRESSION: 1. Mild circumferential thickening throughout the majority of the colon most pronounced within the descending colon with mild pericolonic fat stranding. Findings are consistent with a nonspecific colitis. This favors an infectious or inflammatory process. Ischemic colitis is considered less likely but not entirely excluded. 2. A large hiatus hernia containing the majority the stomach and mid transverse colon. 3. Possible thickening of the endometrium measures up to 1.5 cm. Follow-up nonemergent pelvic ultrasound recommended for further evaluation. 4. A partially calcified 1.8 cm splenic artery aneurysm. Stool PCR: negative Hg 15 -- > 12 11/15 Colitis, possible ischemic, infectious, inflammatory Given IV Unasyn then transition to Augmentin p.o. Symptoms improving GI service consulted, recommend outpatient colonoscopy in 4 to 6 weeks Discharge plan: Augmentin twice daily x5 more days to complete 10-day course Outpatient colonoscopy in 4 to 6 weeks Patient advised to increase water intake, was only drinking 1 to 2 glasses/day (3) Dysuria: Plan: UTI ruled out Resolved (4) Abnormal computed tomography of abdomen and pelvis: Plan: CT abdomen pelvis: Possible thickening of the endometrium measures up to 1.5 cm. Patient will need further outpatient follow-up with ultrasound pelvis, gynecology Discussed further work-up with patient who wishes to defer at this time and follow-up outpatient (5) COPD with asthma: Plan: No signs exacerbation Continue Combivent as needed (6) Depression: Plan: Continue sertraline (7) Borderline hypertension: Plan: History of borderline hypertension. Not on medication BP improved DVT Prophylaxis SCDs Disposition Anticipate discharge to home tomorrow when medically stable Full Code as per discussion with pt Follows with Dr Sandoval for routine care plan of care discussed with patient in detail and at length all questions answered she is understanding, agreeable, comfortable with the plan of care Admission and Anticipated Discharge Date Admission Date: November 13, 2022 Subjective Follow-up for colitis, etc. Seen resting in bed, comfortable, in good spirits States she feels improved overall Abdominal pain has resolved Had 2 bowel movements today, formed, with some red/dark maroon areas No nausea or vomiting Tolerating diet well Review of Systems Review of Systems: all noted and negative except for above Physical Exam Physical Exam: General- oriented x 3, not in distress, speaks in sentences with no effort or accessory muscle use Eyes- anicteric Neck- no JVD Lungs- clear breath sounds bilaterally, no rales/wheezes Heart- normal rate, regular rhythm; no murmurs Abdomen- normal bowel sounds, nondistended, soft, nontender Extremities- no pretibial edema, no calf tenderness Neuro- alert, oriented x 3; no gross focal neurologic deficits Skin- warm & dry Results & Data Results & Data Vital Signs (Past 12 Hours) Vital Signs Temp Pulse Resp BP Pulse Ox O2 Del Method 11/15/22 15:41 37.0 C 71 16 150/77 H 94 Room Air 11/15/22 11:21 37 C 69 16 146/80 H 93 Room Air 11/15/22 08:06 36.8 C 65 15 126/72 92 Room Air all noted and reviewed including below
[2022-11-16] MEDS: AMOXICILLIN/CLAVULANATE 875 MG TAB PO SCH (09:09)
[2022-11-16] MEDS: SERTRALINE HCL 50 MG TABLET PO SCH (09:10)
[2022-11-16] MEDS: POT PHOSPHATE MONOBASIC W/ SOD TAB PO SCH (13:33)
--- NOTE | 2022-11-16 15:54 | Discharge Summary ---
Date of Service November 16, 2022 Admission HPI Per Admitting Provider Patient is 87 y/o F with PMH COPD, borderline HTN, depression, h/o splenic artery aneurysm presented to ER with c/o bloody diarrhea today. Patient states yesterday was in her normal health and ate spaghetti meatballs for dinner. She states woke up 5 AM this morning with bloody diarrhea. She reports approximately 10 episodes of bloody diarrhea. Also reports lower abdominal cramping. Has had dry heaves without vomiting. Reports was sweating when she was having dry heaves and diarrhea episodes. No known fever. Denies ill contacts. Took prophylactic amoxicillin prior to dental exam approximately 1 month ago, denies any other antibiotic use. States past couple days with mild dysuria, denies noted hematuria. Has chronic stress incontinence. Reports chronic intermittent cough. Denies any increased cough or shortness of breath. Denies PORTILLO, dizziness, syncope, neck pain, CP, SOB, rhinorrhea, weakness, extremity weakness, extremity edema, rashes. Admission Exam Per Admitting Provider General: no distress, WDWN Head: normocephalic, atraumatic Eyes: conjunctiva non-injected, anicteric ENT: normal inspection external ears, nose, mucous membranes moist Neck: supple, trachea midline Lungs: clear, no respiratory distress, no wheezing/rhonchi/rales CV: RRR, no murmur, no pretibial edema Abd: normal BS, soft, non-tender Ext: no cyanosis, no calf tenderness Neuro: A&O x 3, no focal deficits noted, normal affect Skin: warm, dry Principal Diagnosis Bloody diarrhea likely due to colitis Discharge Exam General- oriented x 3, not in distress, speaks in sentences with no effort or accessory muscle use Eyes- anicteric Neck- no JVD Lungs- clear breath sounds bilaterally, no rales/wheezes Heart- normal rate, regular rhythm; no murmurs Abdomen- normal bowel sounds, nondistended, soft, nontender Extremities- no pretibial edema, no calf tenderness Neuro- alert, oriented x 3; no gross focal neurologic deficits Skin- warm & dry Discharge Data Allergies Allergy/AdvReac Type Severity Reaction Status Date / Time cefoxitin [From Mefoxin] Allergy Mild Rash Verified 01/21/22 06:53 nickel Allergy Mild JEWELRY - Verified 06/17/22 06:53 MAKES EARS ITCH Consultations 11/11/22 13:18 ED Decision to Admit Stat 11/12/22 08:11 Consult Gastroenterology Routine Ordered Studies 11/11/22 11:02 CT angio abdomen pelvis w con Stat Hospital Course (1) Colitis: (2) Bloody diarrhea: (3) Dysuria: (4) Abnormal computed tomography of abdomen and pelvis: (5) COPD with asthma: (6) Depression: (7) Borderline hypertension: Patient is 87 y/o F with PMH COPD, borderline HTN, depression, h/o splenic artery aneurysm presented to ER with c/o dry heaves and bloody diarrhea today. CT abdomen and pelvis showed mild circumferential thickening throughout the majority of the colon most pronounced within the descending colon with mild pericolonic fat stranding. Her hemoglobin down trended from 15 to 12; remained stable. GI was consulted; recommend outpatient colonoscopy in 4 to 6 weeks. The likely underlying cause for the diarrhea was thought secondary to colitis due to infectious vs infectious vs inflammatory. Over the course of the hospitalization, patient's diarrhea resolved. She denied any pain or discomfort at the time of discharge. Patient to follow-up with her primary care doctor at discharge. All other medication were resumed as before. Total Time Total Time Spent Total Time Spent (In Minutes): 35 Total Time Includes: Examination of the Patient, Discharge Planning, Medication Reconciliation, Communication With Other Providers and Other Discharge Plan Discharge Items Patient Disposition: Home - Self-Care Reason For Visit: COLITIS Discharge Diagnosis: Colitis Activity: Resume your previous activity Non-emergency contact: Primary Care Provider Call non-emergency contact if: you have any medication questions and your symp toms worsen Follow-up/Referrals: Nancy Sandoval DO [Primary Care Provider] - 11/21/22 11:20 am (Date & Time 11/21/2022 11:20 AM Provider Nancy Sandoval DO Department [facility] ) Diet: Regular Addtl Attending Provider Instructions: You were admitted to the hospital with colitis. You were evaluated by GI Doctor While you were in the hospital. GI doctor recommended outpatient colonoscopy in 4 to 6 weeks. You are prescribed Augmentin twice daily for 5 more days with meals. An appointment with primary care doctor has been set up for you on November 21. Pending Studies at Discharge: No Stand-Alone Forms: Joystickers, Smoking Cessation Medications and DC Order Prescriptions: New amoxicillin-pot clavulanate 875-125 mg Tablet 1 tab PO BIDM 5 Days Qty: 10 0RF Continued ibuprofen [Advil] 200 mg Tablet 200 mg PO Q6H PRN (Reason: Pain) sertraline [Zoloft] 50 mg Tablet 50 mg PO DAILY Patient Comments: has no routine Combivent Respimat 20-100 mcg/actuation mist 1 puff INHALATION QID PRN (Reason: Shortness Of Breath Or Wheezing) Discontinued amoxicillin 500 mg tablet 2,000 mg PO ONCE PRN (Reason: prophylaxis) Qty: 4 2RF Rx Instructions: ONE HOUR PRIOR TO DENTAL PROCEDURE Discharge Orders: Discharge Order (Routine); Ordered 11/16/22 Ordered By: Eric Caballero/Other Patient Handouts: ED Ulcerative Colitis Admission Data Admit Date/Time: 11/13/22 14:03 Attending Provider: Eric Miller Admit Provider: Antonia Cabrera I. Primary Care Provider: Nancy Sandoval Other Providers: Antonia Cabrera I. ; Pietro Duggan Other Interventions: Discharge Summary Assessment (RN) Last Done: 11/16/22 13:37
== END 2022-11-16 14:13 | disposition home or self-care (01) | DRG 392 ==
LOC: 3N 10:54 → ED 10:54 → SUATTDRO 13:56 → 3N 15:04 → SUATTDRO 11-13 14:03